=== PATIENT | male | born 1945 | race Caucasian/White ===

== ENCOUNTER 2019-03-19 21:10 | Inpatient (IN) | payer MEDICARE ==
[2019-03-19] MEDS ORDERED: Maalox 30 mL Cup PO PRN (22:55)
[2019-03-19] MEDS ORDERED: Magnesium Hydroxide (MOM) 30 mL UDC PO PRN (22:55)
[2019-03-19 23:08] VITALS: BP 127/74
[2019-03-20] MEDS: Multivitamin Tab PO SCH (08:56)
--- NOTE | 2019-03-20 18:58 | History & Physical ---
ADMIT DATE: 03/19/2019 HISTORY OF PRESENT ILLNESS: The patient is a 73-year-old male with long history of degenerative joint disease, hyperlipidemia and dementia, admitted to [facility] under Dr. Cherry's service for the treatment. The patient is a poor historian. No fever, no chills, no nausea, no vomiting. PAST MEDICAL HISTORY: Significant for hyperlipidemia, degenerative joint disease, gastroesophageal reflux, dementia. PAST SURGICAL HISTORY: No recent surgery. ALLERGIES: None. MEDICATIONS: Follow admission reconciliation. SOCIAL HISTORY: No smoking, no alcohol, no drug. FAMILY HISTORY: Noncontributory. REVIEW OF SYSTEMS: RENAL SYSTEM: No history of chronic renal disorder. CARDIOVASCULAR SYSTEM: No coronary artery disease. ENDOCRINE SYSTEM: No diabetes or thyroid problem. GASTROINTESTINAL SYSTEM: No upper or lower gastrointestinal bleed. NEUROLOGICAL SYSTEM: No seizure disorder. MUSCULOSKELETAL SYSTEM: Has degenerative joint disease. RESPIRATORY SYSTEM: No asthma. GENITOURINARY: No dysuria or hematuria. PHYSICAL EXAMINATION: GENERAL: He is awake, not coherent. VITAL SIGNS: Temperature is 98, heart rate 90, blood pressure 170/70. HEENT: Pupils reactive to light and accommodation. Sclerae clear. NECK: Supple. Negative for lymphadenopathy, JVD or bruit. CHEST: Entry of air bilaterally normal. No rhonchi or wheezing. HEART: S1, S2 normal. No murmurs, rubs or gallop rhythm. ABDOMEN: Soft, bowel sounds positive. EXTREMITIES: No edema. NEUROLOGIC: He is awake, alert, not coherent. Gait is unstable. ASSESSMENT: 1. Hyperlipidemia. 2. Degenerative joint disease. 3. Gastroesophageal reflux. 4. Dementia. 5. Psychosis. PLAN: The patient was admitted to the hospital under Dr. Cherry's service, prompted for hospitalization is psychosis. Medical problems addressed at discharge are degenerative joint disease, hyperlipidemia. The patient is medically stable for activity. Thank you, Dr. Cherry for asking me to see the patient. The patient is a full code. JOB# [id number]
[2019-03-20] MEDS: Atorvastatin Calcium 10 MG TAB PO SCH ×2 (21:20→21:30)
--- NOTE | 2019-03-20 21:25 | Psychiatric Evaluation ---
DATE OF SERVICE: 03/20/2019 JUSTIFICATION FOR HOSPITALIZATION: Agitation, hitting staff. HISTORY OF PRESENT ILLNESS: A 73-year-old male, currently in the hospital, refusing to speak with me this morning, apparently aggressive behaviors, hitting staff, refusing medications. History of alcoholism, anxiety, gastritis, brain cyst, currently here because he was really aggressive. They could not really care for him at his place of residence, which was in [place]. Chirag was walking around his care center, attempted to hit staff with a stapler, really aggressive. They could not control him, apparent history of schizophrenia, not taking his medications. PAST PSYCHIATRIC HISTORY: As noted, schizophrenia. FAMILY HISTORY: Noncontributory. SOCIAL HISTORY: Coming from a care facility in [place], unclear family support. MEDICATIONS: Noted. Drug history unclear, refusing to talk to me. MENTAL STATUS EXAMINATION: Disheveled, unkempt, refusing to talk to me. Thought processes unclear. SI unclear, HI unclear, although he was aggressive, psychosis unclear. Insight poor. Judgment poor. PROVISIONAL DIAGNOSES: Schizophrenia per documentation. MEDICAL: Please see full H and P. ESTIMATED LENGTH OF STAY: 5-7 days. ASSESSMENT: The patient is agitated and really seems to be with psychotically driven agitation, trying to hit people with a stapler, dangerous to really those around him. CONDITIONS FOR DISCHARGE: Improved mood, improved affect, better control of any agitation. PLAN: Will be to adjust his medications, stabilize further. JOB# [id number]
[2019-03-21] MEDS: Multivitamin Tab PO SCH (10:42)
[2019-03-21] MEDS: Atorvastatin Calcium 10 MG TAB PO SCH (21:00)
--- NOTE | 2019-03-21 22:32 | Internal Medicine Prog Note ---
Internal Medicine Subjective - Subjective Service Date: 03/21/19 Patient seen and examined:: without staff Patient is:: awake, non-verbal, in bed, confused Per staff patient has:: no adverse event Internal Medicine Objective - Physical Exam Vitals and I&O: Vital Signs Temp 97.8 F 03/21/19 20:27 Pulse 86 03/21/19 20:27 Resp 18 03/21/19 20:27 BP 90/55 03/21/19 20:27 Pulse Ox 96 03/21/19 20:27 Intake & Output 03/21/19 03/21/19 03/22/19 06:59 18:59 06:59 Intake Total 720 240 Balance 720 240 Intake: Oral 720 240 Other: # Voids 4 1 # Bowel Movements 0 Active Medications: Current Medications Acetaminophen (Tylenol) 650 mg PO Q4HR PRN PRN Reason: Mild Pain / Temp above 100 Stop: 05/18/19 22:54 Last Admin: 03/20/19 14:31 Dose: 650 mg Al Hydrox/Mg Hydrox/Simethicone (Maalox) 30 ml PO Q4HR PRN PRN Reason: GI DISTRESS Stop: 05/18/19 22:54 Atorvastatin Calcium (Lipitor) 20 mg PO HS JOSSELYN Stop: 05/19/19 20:59 Last Admin: 03/21/19 21:00 Dose: Not Given Chlordiazepoxide (Librium) 50 mg PO TID JOSSELYN; Protocol Stop: 05/20/19 13:59 Last Admin: 03/21/19 21:00 Dose: Not Given Folic Acid (Folate) 1 mg PO DAILY [facility] Stop: 05/19/19 08:59 Last Admin: 03/21/19 10:41 Dose: Not Given Lorazepam (Ativan) 0.5 mg PO Q4HR PRN; Protocol PRN Reason: Anxiety Stop: 04/18/19 22:54 Last Admin: 03/21/19 00:37 Dose: 0.5 mg Magnesium Hydroxide (Milk Of Magnesia) 30 ml PO HS PRN PRN Reason: Constipation Multivitamins/Vitamin C (Theragran) 1 tab PO DAILY [facility] Stop: 05/19/19 08:59 Last Admin: 03/21/19 10:42 Dose: Not Given Mupirocin (Bactroban Oint) 1 appl NS BID [facility] Stop: 03/26/19 09:01 Last Admin: 03/21/19 17:27 Dose: Not Given Risperidone (Risperdal) 0.5 mg PO BID [facility]; Protocol Stop: 05/19/19 16:59 Last Admin: 03/21/19 17:27 Dose: 0.5 mg Thiamine HCl (Vitamin B1) 100 mg PO DAILY [facility] Stop: 05/19/19 08:59 Last Admin: 03/21/19 10:42 Dose: Not Given Zolpidem Tartrate (Ambien) 5 mg PO HS PRN PRN Reason: Insomnia Stop: 05/18/19 22:54 Last Admin: 03/21/19 21:00 Dose: 5 mg General: demented HEENT: NC/AT, PERRLA, EOMI, anicteric sclerae, throat clear Neck: Supple, No JVD, No thyromegaly, +2 carotid pulse wo bruit, No LAD Lungs: CTAB Cardiovascular: RRR, Normal S1, Normal S2, without murmur Abdomen: non-tender, non-distended Neurological: no change Internal Medicine Assmt/Plan - Assessment Assessment: 1.HYPERLIPIDEMIA. 2.DJD. 3.NACHO. 4.DEMENTIA,\. 5.PSYCHOSIS - Plan Plan: CONTINUE ON CURRENT MEDICATION AND DIET.
--- NOTE | 2019-03-22 02:02 | Progress Notes ---
DATE: 03/21/2019 SUBJECTIVE: The patient in the hospital pretty lethargic. Staff concerned about over sedation given his Librium dose in combination with his age, not saying much to me today, sleeping, but arousable, but then goes back to sleep. He is pretty unkempt, staff noting some disorganized thought processes were noted, guarded, suspicious. The patient is coming from [facility]. History of alcoholism, aggressive behaviors, hitting staff that is why he is here. The patient remains impulsive, unpredictable, currently on dosing of Risperdal. Ongoing safety concerns, difficult interview. I will be slowly tapering his dosing of Librium. JOB# [id number]
[2019-03-22] MEDS: Multivitamin Tab PO SCH (09:25)
--- NOTE | 2019-03-22 11:21 | Internal Medicine Prog Note ---
Internal Medicine Subjective - Subjective Service Date: 03/22/19 Patient seen and examined:: with staff (HE IS DOING WELL) Patient is:: awake, non-verbal, in bed, confused Per staff patient has:: no adverse event Internal Medicine Objective - Physical Exam Vitals and I&O: Vital Signs Temp 97.6 F 03/22/19 06:44 Pulse 90 03/22/19 06:44 Resp 18 03/22/19 06:44 BP 105/68 03/22/19 06:44 Pulse Ox 97 03/22/19 06:44 Intake & Output 03/21/19 03/22/19 03/22/19 18:59 06:59 18:59 Intake Total 720 360 Balance 720 360 Intake: Oral 720 360 Other: # Voids 4 1 # Bowel Movements 0 Active Medications: Current Medications Acetaminophen (Tylenol) 650 mg PO Q4HR PRN PRN Reason: Mild Pain / Temp above 100 Stop: 05/18/19 22:54 Last Admin: 03/20/19 14:31 Dose: 650 mg Al Hydrox/Mg Hydrox/Simethicone (Maalox) 30 ml PO Q4HR PRN PRN Reason: GI DISTRESS Stop: 05/18/19 22:54 Atorvastatin Calcium (Lipitor) 20 mg PO HS JOSSELYN Stop: 05/19/19 20:59 Last Admin: 03/21/19 21:00 Dose: Not Given Chlordiazepoxide (Librium) 50 mg PO TID JOSSELYN; Protocol Stop: 05/20/19 13:59 Last Admin: 03/22/19 09:25 Dose: 50 mg Folic Acid (Folate) 1 mg PO DAILY J[facility]N Stop: 05/19/19 08:59 Last Admin: 03/22/19 09:26 Dose: 1 mg Lorazepam (Ativan) 0.5 mg PO Q4HR PRN; Protocol PRN Reason: Anxiety Stop: 04/18/19 22:54 Last Admin: 03/22/19 09:25 Dose: 0.5 mg Magnesium Hydroxide (Milk Of Magnesia) 30 ml PO HS PRN PRN Reason: Constipation Multivitamins/Vitamin C (Theragran) 1 tab PO DAILY [facility] Stop: 05/19/19 08:59 Last Admin: 03/22/19 09:25 Dose: 1 tab Mupirocin (Bactroban Oint) 1 appl NS BID [facility] Stop: 03/26/19 09:01 Last Admin: 03/22/19 09:26 Dose: 1 appl Risperidone (Risperdal) 0.5 mg PO BID [facility]; Protocol Stop: 05/19/19 16:59 Last Admin: 03/22/19 09:25 Dose: 0.5 mg Thiamine HCl (Vitamin B1) 100 mg PO DAILY [facility] Stop: 05/19/19 08:59 Last Admin: 03/22/19 09:26 Dose: 100 mg Zolpidem Tartrate (Ambien) 5 mg PO HS PRN PRN Reason: Insomnia Stop: 05/18/19 22:54 Last Admin: 03/21/19 21:00 Dose: 5 mg General: demented HEENT: NC/AT, PERRLA, EOMI, anicteric sclerae, throat clear Neck: Supple, No JVD, No thyromegaly, +2 carotid pulse wo bruit, No LAD Lungs: CTAB Cardiovascular: RRR, Normal S1, Normal S2, without murmur Abdomen: non-tender, non-distended Neurological: no change Internal Medicine Assmt/Plan - Assessment Assessment: 1.HYPERLIPIDEMIA. 2.DJD. 3.NACHO. 4.DEMENTIA,\. 5.PSYCHOSIS - Plan Plan: CONTINUE ON CURRENT MEDICATION AND DIET.
--- NOTE | 2019-03-22 20:53 | Progress Notes ---
DATE: 03/22/2019 Case was discussed with staff of the patient, reviewed records. This is a 73-year-old male who was admitted on 03/19/2019. He was agitated, hitting himself, aggressive, hitting staff, refusing care. History of alcoholism, anxiety, gastritis He was aggressive prior to him covering. Unable to care for self at his place of residence, which is [place]. He walk on his care center, attempting to hit staff with stapler, really aggressive, could not control him with a prior history of schizophrenia, noncompliant with his medication. The patient was hard to interview, would not answer to any questions. Continues to be unpredictable, impulsive, continues to have poor insight, disorganized thoughts, suspicious, guarded, paranoid. No side effects with the medication, no sedation, no nausea, no extrapyramidal symptoms. He is on Risperdal 0.5 mg twice a day and Librium 50 mg 3 times a day with thiamine, multivitamin, folic acid with no side effects, no sedation, no nausea, no extrapyramidal symptoms. We will continue to work with the patient in group therapy, milieu therapy, and adjust the medication as needed. JOB# [id number] LAUREN
[2019-03-22] MEDS: Atorvastatin Calcium 10 MG TAB PO SCH (21:14)
[2019-03-23] MEDS: Multivitamin Tab PO SCH (11:00)
--- NOTE | 2019-03-23 18:25 | Internal Medicine Prog Note ---
Internal Medicine Subjective - Subjective Service Date: 03/23/19 Patient seen and examined:: without staff (he is not eating) Patient is:: awake, non-verbal, in bed, confused Per staff patient has:: no adverse event Internal Medicine Objective - Physical Exam Vitals and I&O: Vital Signs Temp 96.8 F 03/23/19 14:00 Pulse 88 03/23/19 14:00 Resp 18 03/23/19 14:00 BP 99/61 03/23/19 14:00 Pulse Ox 96 03/23/19 14:00 Intake & Output 03/22/19 03/23/19 03/23/19 18:59 06:59 18:59 Intake Total 1100 120 0 Balance 1100 120 0 Intake: Oral 1100 120 0 Other: # Voids 4 3 1 # Bowel Movements 0 0 Active Medications: Current Medications Acetaminophen (Tylenol) 650 mg PO Q4HR PRN PRN Reason: Mild Pain / Temp above 100 Stop: 05/18/19 22:54 Last Admin: 03/20/19 14:31 Dose: 650 mg Al Hydrox/Mg Hydrox/Simethicone (Maalox) 30 ml PO Q4HR PRN PRN Reason: GI DISTRESS Stop: 05/18/19 22:54 Atorvastatin Calcium (Lipitor) 20 mg PO HS JOSSELYN Stop: 05/19/19 20:59 Last Admin: 03/22/19 21:14 Dose: 20 mg Chlordiazepoxide (Librium) 50 mg PO TID JOSSELYN; Protocol Stop: 05/20/19 13:59 Last Admin: 03/23/19 15:31 Dose: Not Given Folic Acid (Folate) 1 mg PO DAILY [facility] Stop: 05/19/19 08:59 Last Admin: 03/23/19 11:00 Dose: Not Given Lorazepam (Ativan) 0.5 mg PO Q4HR PRN; Protocol PRN Reason: Anxiety Stop: 04/18/19 22:54 Last Admin: 03/22/19 09:25 Dose: 0.5 mg Magnesium Hydroxide (Milk Of Magnesia) 30 ml PO HS PRN PRN Reason: Constipation Megestrol Acetate (Megace) 400 mg PO BID JOSSELYN; Protocol Stop: 05/23/19 08:59 Multivitamins/Vitamin C (Theragran) 1 tab PO DAILY [facility] Stop: 05/19/19 08:59 Last Admin: 03/23/19 11:00 Dose: Not Given Mupirocin (Bactroban Oint) 1 appl NS BID [facility] Stop: 03/26/19 09:01 Last Admin: 03/23/19 17:30 Dose: Not Given Risperidone (Risperdal) 0.5 mg PO BID [facility]; Protocol Stop: 05/19/19 16:59 Last Admin: 03/23/19 17:30 Dose: Not Given Thiamine HCl (Vitamin B1) 100 mg PO DAILY [facility] Stop: 05/19/19 08:59 Last Admin: 03/23/19 11:01 Dose: Not Given Zolpidem Tartrate (Ambien) 5 mg PO HS PRN PRN Reason: Insomnia Stop: 05/18/19 22:54 Last Admin: 03/22/19 21:15 Dose: 5 mg General: demented HEENT: NC/AT, PERRLA, EOMI, anicteric sclerae, throat clear Neck: Supple, No JVD, No thyromegaly, +2 carotid pulse wo bruit, No LAD Lungs: CTAB Cardiovascular: RRR, Normal S1, Normal S2, without murmur Abdomen: non-tender, non-distended Neurological: no change Internal Medicine Assmt/Plan - Assessment Assessment: 1.HYPERLIPIDEMIA. 2.DJD. 3.NACHO. 4.DEMENTIA,\. 5.PSYCHOSIS - Plan Plan: CONTINUE ON CURRENT MEDICATION AND DIET.MEGACE 10 CC PO BID AND CBC AND CMP IN AM.
[2019-03-23 18:51] LABS: % BASOPHILS 2.5 % (0.0-2.0); % EOSINOPHILS 1.7 % (0.0-5.0); % LYMPHOCYTES 13.8 % (20.0-50.0); BASOPHILE ABSOLUTE 0.2 Th/cumm (0-0.2); EOSINOPHILE ABSOLUTE 0.2 Th/cmm (0.1-0.4); HEMATOCRIT 51.3 % (41.0-60); HEMOGLOBIN 17.3 gm/dL (12-16); LYMPHOCYTE ABSOLUTE 1.3 Th/cmm (1.5-3.0); MEAN CELL VOLUME 102.4 fl (80-99); MEAN CORPUSCULAR HEMOGLOBIN 34.5 pg (27.0-31.0); MEAN CORPUSCULAR HGB CONC 33.7 pg (28.0-36.0); MONOCYTE ABSOLUTE 0.2 Th/cmm (0.3-1.0); NEUTROPHILE ABSOLUTE 7.7 Th/cmm (1.8-8.0); PLATELET COUNT 396 Th/cmm (150-400); RED BLOOD COUNT 5.01 Mil/cmm (3.80-5.80); RED CELL DISTRIBUTION WIDTH 14.4 % (11.5-20.0); WHITE BLOOD COUNT 9.6 Th/cmm (4.8-10.8)
[2019-03-23 19:07] LABS: ALB/GLOB RATIO 1.3 (1.0-1.8); ALBUMIN 4.1 gm/dL (4.2-5.5); ALKALINE PHOSPHATASE 76 U/L (34-104); ANION GAP 17.3 (7.0-16.0); BILIRUBIN,TOTAL 0.8 mg/dL (0.3-1.0); BUN - UREA NITROGEN 15 mg/dL (7-25); CALCIUM SERUM 9.1 mg/dL (8.6-10.3); CARBON DIOXIDE 25.5 mEq/L (21.0-31.0); CHLORIDE 105 mEq/L (98-107); CREATININE - SERUM 0.7 mg/dL (0.7-1.3); GLUCOSE 138 mg/dL (70-105); POTASSIUM SERUM 3.8 mEq/L (3.5-5.1); SGOT 45 U/L (13-39); SGPT/ALT 28 U/L (7-52); SODIUM SERUM 144 mEq/L (136-145); TOTAL PROTEIN,SERUM 7.3 gm/dL (6.0-8.3)
[2019-03-23] MEDS: Atorvastatin Calcium 10 MG TAB PO SCH (21:35)
--- NOTE | 2019-03-23 22:51 | Progress Notes ---
DATE: 03/23/2019 Case was discussed with staff of the patient, reviewed records. The patient continues to isolate himself, at times aggressive, hitting staff, continues to be unpredictable and impulsive. He has episodes of being aggressive and attempted to hit staff with a history of schizophrenia, was noncompliant with medication. Unable to participate in a meaningful conversation or make safe plan for self-care, unpredictable, impulsive. No side effects with the medication, no sedation, no nausea, no extrapyramidal symptoms. We will continue to work with the patient in group therapy, milieu therapy, and adjust the medication as needed. JOB# [id number]
[2019-03-24] MEDS: Multivitamin Tab PO SCH (08:24)
[2019-03-24 08:46] LABS: CHOLESTEROL 139 mg/dL (<200); HDL -HIGH DENSITY LIPOPROTEIN 59 mg/dL (23-92); TRIGLYCERIDES 115 mg/dL (<150)
--- NOTE | 2019-03-24 18:14 | Internal Medicine Prog Note ---
Internal Medicine Subjective - Subjective Service Date: 03/24/19 Patient seen and examined:: with staff (HE IS STILL NOT EATING WELL) Patient is:: awake, non-verbal, in bed, confused Per staff patient has:: no adverse event Internal Medicine Objective - Results Result Diagrams: 03/23/19 18:30 03/23/19 18:30 Recent Labs: Laboratory Last Values WBC 9.6 Th/cmm (4.8-10.8) 03/23/19 18:30 RBC 5.01 Mil/cmm (3.80-5.80) 03/23/19 18:30 Hgb 17.3 gm/dL (12-16) 03/23/19 18:30 Hct 51.3 % (41.0-60) 03/23/19 18:30 MCV 102.4 fl (80-99) H 03/23/19 18:30 MCH 34.5 pg (27.0-31.0) H 03/23/19 18:30 MCHC Differential 33.7 pg (28.0-36.0) 03/23/19 18:30 RDW 14.4 % (11.5-20.0) 03/23/19 18:30 Plt Count 396 Th/cmm (150-400) 03/23/19 18:30 MPV 7.4 fl 03/23/19 18:30 Neutrophils % 80.0 % (40.0-80.0) 03/23/19 18:30 Lymphocytes % 13.8 % (20.0-50.0) L 03/23/19 18:30 Monocytes % 2.0 % (2.0-10.0) 03/23/19 18:30 Eosinophils % 1.7 % (0.0-5.0) 03/23/19 18:30 Basophils % 2.5 % (0.0-2.0) H 03/23/19 18:30 Sodium 144 mEq/L (136-145) 03/23/19 18:30 Potassium 3.8 mEq/L (3.5-5.1) 03/23/19 18:30 Chloride 105 mEq/L (98-107) 03/23/19 18:30 Carbon Dioxide 25.5 mEq/L (21.0-31.0) 03/23/19 18:30 Anion Gap 17.3 (7.0-16.0) H 03/23/19 18:30 BUN 15 mg/dL (7-25) 03/23/19 18:30 Creatinine 0.7 mg/dL (0.7-1.3) 03/23/19 18:30 Est GFR ( Amer) TNP 03/23/19 18:30 Est GFR (Non-Af Amer) TNP 03/23/19 18:30 BUN/Creatinine Ratio 21.4 03/23/19 18:30 Glucose 138 mg/dL (70-105) H 03/23/19 18:30 Calcium 9.1 mg/dL (8.6-10.3) 03/23/19 18:30 Total Bilirubin 0.8 mg/dL (0.3-1.0) 03/23/19 18:30 AST 45 U/L (13-39) H 03/23/19 18:30 ALT 28 U/L (7-52) 03/23/19 18:30 Alkaline Phosphatase 76 U/L (34-104) 03/23/19 18:30 Total Protein 7.3 gm/dL (6.0-8.3) 03/23/19 18:30 Albumin 4.1 gm/dL (4.2-5.5) L 03/23/19 18:30 Globulin 3.2 gm/dL 03/23/19 18:30 Albumin/Globulin Ratio 1.3 (1.0-1.8) 03/23/19 18:30 Triglycerides 115 mg/dL (<150) 03/23/19 18:30 Cholesterol 139 mg/dL (<200) 03/23/19 18:30 LDL Cholesterol Direct 57 mg/dL (75-193) L 03/23/19 18:30 HDL Cholesterol 59 mg/dL (23-92) 03/23/19 18:30 - Physical Exam Vitals and I&O: Vital Signs Temp 99.0 F 03/24/19 06:00 Pulse 96 03/24/19 06:00 Resp 19 03/24/19 06:00 BP 107/58 03/24/19 06:00 Pulse Ox 91 03/24/19 06:00 Intake & Output 03/23/19 03/24/19 03/24/19 18:59 06:59 18:59 Intake Total 0 180 Balance 0 180 Intake: Oral 0 180 Other: # Voids 1 1 # Bowel Movements 0 0 Active Medications: Current Medications Acetaminophen (Tylenol) 650 mg PO Q4HR PRN PRN Reason: Mild Pain / Temp above 100 Stop: 05/18/19 22:54 Last Admin: 03/20/19 14:31 Dose: 650 mg Al Hydrox/Mg Hydrox/Simethicone (Maalox) 30 ml PO Q4HR PRN PRN Reason: GI DISTRESS Stop: 05/18/19 22:54 Atorvastatin Calcium (Lipitor) 20 mg PO HS [facility]OSSELYN Stop: 05/19/19 20:59 Last Admin: 03/23/19 21:35 Dose: 20 mg Chlordiazepoxide (Librium) 50 mg PO BID [facility]; Protocol Stop: 05/23/19 16:59 Last Admin: 03/24/19 16:24 Dose: 50 mg Folic Acid (Folate) 1 mg PO DAILY [facility] Stop: 05/19/19 08:59 Last Admin: 03/24/19 08:24 Dose: 1 mg Lorazepam (Ativan) 0.5 mg PO Q4HR PRN; Protocol PRN Reason: Anxiety Stop: 04/18/19 22:54 Last Admin: 03/22/19 09:25 Dose: 0.5 mg Magnesium Hydroxide (Milk Of Magnesia) 30 ml PO HS PRN PRN Reason: Constipation Megestrol Acetate (Megace) 400 mg PO BID [facility]; Protocol Stop: 05/23/19 08:59 Last Admin: 03/24/19 16:24 Dose: 400 mg Multivitamins/Vitamin C (Theragran) 1 tab PO DAILY [facility] Stop: 05/19/19 08:59 Last Admin: 03/24/19 08:24 Dose: 1 tab Mupirocin (Bactroban Oint) 1 appl NS BID [facility] Stop: 03/26/19 09:01 Last Admin: 03/24/19 16:23 Dose: 1 appl Risperidone (Risperdal) 0.5 mg PO BID [facility]; Protocol Stop: 05/19/19 16:59 Last Admin: 03/24/19 16:24 Dose: 0.5 mg Thiamine HCl (Vitamin B1) 100 mg PO DAILY [facility] Stop: 05/19/19 08:59 Last Admin: 03/24/19 08:24 Dose: 100 mg Zolpidem Tartrate (Ambien) 5 mg PO HS PRN PRN Reason: Insomnia Stop: 05/18/19 22:54 Last Admin: 03/22/19 21:15 Dose: 5 mg General: demented HEENT: NC/AT, PERRLA, EOMI, anicteric sclerae, throat clear Neck: Supple, No JVD, No thyromegaly, +2 carotid pulse wo bruit, No LAD Lungs: CTAB Cardiovascular: RRR, Normal S1, Normal S2, without murmur Abdomen: non-tender, non-distended Neurological: no change Internal Medicine Assmt/Plan - Assessment Assessment: 1.HYPERLIPIDEMIA. 2.DJD. 3.NACHO. 4.DEMENTIA,\. 5.PSYCHOSIS - Plan Plan: CONTINUE ON CURRENT MEDICATION AND DIET.MEGACE 10 CC PO BID AND CBC AND CMP IN AM. Nutritional Asmnt/Malnutr-PDOC - Dietary Evaluation Malnutrition Findings (Please click <Entered> for more info): Nutritional Asmnt/Malnutrition Start: 03/24/19 13: 14 Text: Status: Complete Freq: Protocol: Document 03/24/19 13:15 HOLLIE (Rec: 03/24/19 13:18 HOLLIE [id number]) Nutritional Asmnt/Malnutrition Patient General Information Nutritional Screening Low Risk Diagnosis Psychosis NOS Pertinent Medical Hx/Surgical Hx DJD, Hyperlipidemia, Dementia, GERD Subjective Information Pt is a 73-year-old male admitted on 03/19 d/t psychosis. Spoke with RN, Carroll, stated Pt is not eating much and at times refusing meals all together. Pt did drink 8 oz. juice, will provide Pt with Ensure Enlive to promote nutrition intake. RN stated Pt was noted to be lethargic yesterday, but seems fine today. He will monitor lethargy. Per Progress NOTE (), Pt in the hospital pretty lethargic. RN notes () state, Pt is very lethargic, weak, confused. Meal/Nutrition Record: 03/20: Pt ate 100% meals 03/21: Pt ate 50-75% meals 03/22: Pt ate 25-50% meals 03/23: PT refused all meals HT: 56 WT: 139 LB (63.18 kg) BMI: 22.55 (Normal) GI: Soft, Non-tender BM: 03/21 x1 I/O: 180/Not Noted Skin: Dryness Carter: 16 Diet Order: Regular Estimated Energy Needs: ( Geriatric, CBW) 3168-1852 kcals (25-30 kcals/ kg) 63-76g Pro (1.0-1.2 g/kg) 9728-0497 ml (25-30 ml/kg) Current Diet Order/ Nutrition Support Regular Pertinent Medications Maalox (PRN), Lipitor, Folate, MOM (PRN), Megace, Theragran, Vitamin B1 Pertinent Labs 03/23: Glucose 138, AST 45, Alb 4.1 Nutritional Hx/Data Height 1.68 m Height (Calculated Centimeters) 167.6 Current Weight (lbs) 63.049 kg Weight (Calculated Kilograms) 63.0 Weight (Calculated Grams) 90735.3 [place] Body Weight 142 LB (64.55 kg) % [place] Body Weight 98 Body Mass Index (BMI) 22.4 Weight Status Approriate GI Symptoms GI Symptoms None Last BM 03/21 x1 Skin Integrity/Comment: Skin: Dryness Carter: 16 Current %PO Poor (25-49%) Estimated Nutritional Goals BEE in Kcals: Using Current wt Calories/Kcals/Kg 25-30 Kcals Calculated 4528-9289 Protein: Using Current wt Protein g/k.0-1.2 Protein Calculated 62-76 Fluid: ml 4502-4155 ml (25-30 ml/kg) Nutritional Problem 1. Problem Problem Inadequate energy intake Etiology r/t possible poor appetite/ lethargy Signs/Symptoms: aeb noted Pt refusal to eat meals and PO intake 0-25-50% x3 days. Malnutrition Related to Morbid Obesity Malnutrition related to morbid obesity No Intervention/Recommendation Comments 1. Continue with Regular diet as ordered. 2. Add Ensure Enlive TID ( completed). Expected Outcomes/Goals Expected Outcomes/Goals 1. PO intake to meet 75% of nutritional needs. 2. Monitor PO intake, wt, nutrition related labs, and skin integrity. 3. F/U as moderate risk in 3-5 days, 03/27-03/29
[2019-03-24] MEDS: Atorvastatin Calcium 10 MG TAB PO SCH (21:58)
--- NOTE | 2019-03-24 22:58 | Progress Notes ---
DATE: 03/24/2019 SUBJECTIVE: The patient in the hospital, coming in because of aggressive behaviors, hitting staff, history of alcoholism, anxiety, [id number], the patient is irritable, sleeping, arousable, but does not want to talk to me. Per staff, he remains impulsive, unpredictable. Dr. Blount saw the patient yesterday, noted that he was confused and she could not really talk to him yesterday, perhaps he was refusing to talk to her. Per staff, he is confused, combative, aggressive hard time following directions. PLAN: We will continue to monitor. Medications were noted. Continue dosing of Risperdal. He may benefit from dose increase. I will be lowering his dosing of Librium to b.i.d. dosing. JOB# [id number]
[2019-03-25 07:09] LABS: A1C 5.4 % (4.8-5.6)
[2019-03-25] MEDS: Multivitamin Tab PO SCH (08:27)
[2019-03-25] MEDS: Atorvastatin Calcium 10 MG TAB PO SCH (20:44)
--- NOTE | 2019-03-25 22:44 | Internal Medicine Prog Note ---
Internal Medicine Subjective - Subjective Service Date: 03/25/19 Patient seen and examined:: without staff (HE IS STILL CONFUSED) Patient is:: awake, non-verbal, in bed, confused Per staff patient has:: no adverse event Internal Medicine Objective - Results Result Diagrams: 03/23/19 18:30 03/23/19 18:30 Recent Labs: Laboratory Last Values WBC 9.6 Th/cmm (4.8-10.8) 03/23/19 18:30 RBC 5.01 Mil/cmm (3.80-5.80) 03/23/19 18:30 Hgb 17.3 gm/dL (12-16) 03/23/19 18:30 Hct 51.3 % (41.0-60) 03/23/19 18:30 MCV 102.4 fl (80-99) H 03/23/19 18:30 MCH 34.5 pg (27.0-31.0) H 03/23/19 18:30 MCHC Differential 33.7 pg (28.0-36.0) 03/23/19 18:30 RDW 14.4 % (11.5-20.0) 03/23/19 18:30 Plt Count 396 Th/cmm (150-400) 03/23/19 18:30 MPV 7.4 fl 03/23/19 18:30 Neutrophils % 80.0 % (40.0-80.0) 03/23/19 18:30 Lymphocytes % 13.8 % (20.0-50.0) L 03/23/19 18:30 Monocytes % 2.0 % (2.0-10.0) 03/23/19 18:30 Eosinophils % 1.7 % (0.0-5.0) 03/23/19 18:30 Basophils % 2.5 % (0.0-2.0) H 03/23/19 18:30 Sodium 144 mEq/L (136-145) 03/23/19 18:30 Potassium 3.8 mEq/L (3.5-5.1) 03/23/19 18:30 Chloride 105 mEq/L (98-107) 03/23/19 18:30 Carbon Dioxide 25.5 mEq/L (21.0-31.0) 03/23/19 18:30 Anion Gap 17.3 (7.0-16.0) H 03/23/19 18:30 BUN 15 mg/dL (7-25) 03/23/19 18:30 Creatinine 0.7 mg/dL (0.7-1.3) 03/23/19 18:30 Est GFR ( Amer) TNP 03/23/19 18:30 Est GFR (Non-Af Amer) TNP 03/23/19 18:30 BUN/Creatinine Ratio 21.4 03/23/19 18:30 Glucose 138 mg/dL (70-105) H 03/23/19 18:30 Calcium 9.1 mg/dL (8.6-10.3) 03/23/19 18:30 Total Bilirubin 0.8 mg/dL (0.3-1.0) 03/23/19 18:30 AST 45 U/L (13-39) H 03/23/19 18:30 ALT 28 U/L (7-52) 03/23/19 18:30 Alkaline Phosphatase 76 U/L (34-104) 03/23/19 18:30 Total Protein 7.3 gm/dL (6.0-8.3) 03/23/19 18:30 Albumin 4.1 gm/dL (4.2-5.5) L 03/23/19 18:30 Globulin 3.2 gm/dL 03/23/19 18:30 Albumin/Globulin Ratio 1.3 (1.0-1.8) 03/23/19 18:30 Triglycerides 115 mg/dL (<150) 03/23/19 18:30 Cholesterol 139 mg/dL (<200) 03/23/19 18:30 LDL Cholesterol Direct 57 mg/dL (75-193) L 03/23/19 18:30 HDL Cholesterol 59 mg/dL (23-92) 03/23/19 18:30 - Physical Exam Vitals and I&O: Vital Signs Temp 0 F 03/25/19 20:21 Pulse 98 03/25/19 14:00 Resp 20 03/25/19 14:00 BP 124/74 03/25/19 14:00 Pulse Ox 98 03/25/19 14:00 Intake & Output 03/25/19 03/25/19 03/26/19 06:59 18:59 06:59 Intake Total 620 700 120 Output Total 1 Balance 619 700 120 Intake: Oral 620 700 120 Output: Urine/Stool Mix 1 Other: # Voids 1 2 3 # Bowel Movements 0 0 Active Medications: Current Medications Acetaminophen (Tylenol) 650 mg PO Q4HR PRN PRN Reason: Mild Pain / Temp above 100 Stop: 05/18/19 22:54 Last Admin: 03/20/19 14:31 Dose: 650 mg Al Hydrox/Mg Hydrox/Simethicone (Maalox) 30 ml PO Q4HR PRN PRN Reason: GI DISTRESS Stop: 05/18/19 22:54 Atorvastatin Calcium (Lipitor) 20 mg PO HS JOSSELYN Stop: 05/19/19 20:59 Last Admin: 03/25/19 20:44 Dose: 20 mg Chlordiazepoxide (Librium) 50 mg PO BID [facility]; Protocol Stop: 05/23/19 16:59 Last Admin: 03/25/19 16:29 Dose: 50 mg Folic Acid (Folate) 1 mg PO DAILY JOSSELYN Stop: 05/19/19 08:59 Last Admin: 03/25/19 08:27 Dose: 1 mg Lorazepam (Ativan) 0.5 mg PO Q4HR PRN; Protocol PRN Reason: Anxiety Stop: 04/18/19 22:54 Last Admin: 03/24/19 21:57 Dose: 0.5 mg Magnesium Hydroxide (Milk Of Magnesia) 30 ml PO HS PRN PRN Reason: Constipation Megestrol Acetate (Megace) 400 mg PO BID [facility]; Protocol Stop: 05/23/19 08:59 Last Admin: 03/25/19 16:30 Dose: 400 mg Multivitamins/Vitamin C (Theragran) 1 tab PO DAILY [facility] Stop: 05/19/19 08:59 Last Admin: 03/25/19 08:27 Dose: 1 tab Mupirocin (Bactroban Oint) 1 appl NS BID [facility] Stop: 03/26/19 09:01 Last Admin: 03/25/19 16:30 Dose: 1 appl Risperidone (Risperdal) 0.5 mg PO BID [facility]; Protocol Stop: 05/19/19 16:59 Last Admin: 03/25/19 16:30 Dose: 0.5 mg Thiamine HCl (Vitamin B1) 100 mg PO DAILY [facility] Stop: 05/19/19 08:59 Last Admin: 03/25/19 08:27 Dose: 100 mg Zolpidem Tartrate (Ambien) 5 mg PO HS PRN PRN Reason: Insomnia Stop: 05/18/19 22:54 Last Admin: 03/24/19 21:57 Dose: 5 mg General: demented HEENT: NC/AT, PERRLA, EOMI, anicteric sclerae, throat clear Neck: Supple, No JVD, No thyromegaly, +2 carotid pulse wo bruit, No LAD Lungs: CTAB Cardiovascular: RRR, Normal S1, Normal S2, without murmur Abdomen: non-tender, non-distended Neurological: no change Internal Medicine Assmt/Plan - Assessment Assessment: 1.HYPERLIPIDEMIA. 2.DJD. 3.NACHO. 4.DEMENTIA,\. 5.PSYCHOSIS - Plan Plan: CONTINUE ON CURRENT MEDICATION AND DIET. Nutritional Asmnt/Malnutr-PDOC - Dietary Evaluation Malnutrition Findings (Please click <Entered> for more info): Nutritional Asmnt/Malnutrition Start: 03/24/19 13: 14 Text: Status: Complete Freq: Protocol: Document 03/24/19 13:15 HOLLIE (Rec: 03/24/19 13:18 HOLLIE [email or web address]) Nutritional Asmnt/Malnutrition Patient General Information Nutritional Screening Low Risk Diagnosis Psychosis NOS Pertinent Medical Hx/Surgical Hx DJD, Hyperlipidemia, Dementia, GERD Subjective Information Pt is a 73-year-old male admitted on 03/19 d/t psychosis. Spoke with RN, Carroll, stated Pt is not eating much and at times refusing meals all together. Pt did drink 8 oz. juice, will provide Pt with Ensure Enlive to promote nutrition intake. RN stated Pt was noted to be lethargic yesterday, but seems fine today. He will monitor lethargy. Per Progress NOTE (), Pt in the hospital pretty lethargic. RN notes () state, Pt is very lethargic, weak, confused. Meal/Nutrition Record: 03/20: Pt ate 100% meals 03/21: Pt ate 50-75% meals 03/22: Pt ate 25-50% meals 03/23: PT refused all meals HT: 56 WT: 139 LB (63.18 kg) BMI: 22.55 (Normal) GI: Soft, Non-tender BM: 03/21 x1 I/O: 180/Not Noted Skin: Dryness Carter: 16 Diet Order: Regular Estimated Energy Needs: ( Geriatric, CBW) 8588-6640 kcals (25-30 kcals/ kg) 63-76g Pro (1.0-1.2 g/kg) 7258-1820 ml (25-30 ml/kg) Current Diet Order/ Nutrition Support Regular Pertinent Medications Maalox (PRN), Lipitor, Folate, MOM (PRN), Megace, Theragran, Vitamin B1 Pertinent Labs 03/23: Glucose 138, AST 45, Alb 4.1 Nutritional Hx/Data Height 1.68 m Height (Calculated Centimeters) 167.6 Current Weight (lbs) 63.049 kg Weight (Calculated Kilograms) 63.0 Weight (Calculated Grams) 00259.3 [place] Body Weight 142 LB (64.55 kg) % [place] Body Weight 98 Body Mass Index (BMI) 22.4 Weight Status Approriate GI Symptoms GI Symptoms None Last BM 03/21 x1 Skin Integrity/Comment: Skin: Dryness Carter: 16 Current %PO Poor (25-49%) Estimated Nutritional Goals BEE in Kcals: Using Current wt Calories/Kcals/Kg 25-30 Kcals Calculated 1987-0484 Protein: Using Current wt Protein g/k.0-1.2 Protein Calculated 62-76 Fluid: ml 9789-4340 ml (25-30 ml/kg) Nutritional Problem 1. Problem Problem Inadequate energy intake Etiology r/t possible poor appetite/ lethargy Signs/Symptoms: aeb noted Pt refusal to eat meals and PO intake 0-25-50% x3 days. Malnutrition Related to Morbid Obesity Malnutrition related to morbid obesity No Intervention/Recommendation Comments 1. Continue with Regular diet as ordered. 2. Add Ensure Enlive TID ( completed). Expected Outcomes/Goals Expected Outcomes/Goals 1. PO intake to meet 75% of nutritional needs. 2. Monitor PO intake, wt, nutrition related labs, and skin integrity. 3. F/U as moderate risk in 3-5 days, 03/27-03/29
--- NOTE | 2019-03-25 23:58 | Progress Notes ---
DATE: 03/25/2019 Case was discussed with staff of the patient, reviewed records. The patient continues to have episodes of irritability, continues to be confused, continues to need redirection. Continues to be impulsive, unpredictable. He tends to be combative, aggressive according to the staff. The patient is on Risperdal that was 0.5 mg twice a day. We will continue outpatient group therapy, milieu therapy, and adjust medication as needed. [facility]# [id number]
[2019-03-26] MEDS: Multivitamin Tab PO SCH (09:53)
--- NOTE | 2019-03-26 13:14 | Progress Notes ---
DATE: Case was discussed with staff of the patient, reviewed records. Covering for Dr. Cherry. The patient continues to be confused, needing redirection, impulsive, unpredictable, continues to isolate himself, not participating in meaningful conversation. He tolerated increase in Risperdal with no side effects, no sedation, no nausea, no extrapyramidal symptoms. We will continue outpatient group therapy, milieu therapy, and adjust medications as needed. [facility]# [id number]
--- NOTE | 2019-03-26 19:57 | Internal Medicine Prog Note ---
Internal Medicine Subjective - Subjective Service Date: 03/26/19 Patient seen and examined:: without staff (HE IS STILL CONFUSED) Patient is:: awake, non-verbal, in bed, confused Per staff patient has:: no adverse event Internal Medicine Objective - Results Result Diagrams: 03/23/19 18:30 03/23/19 18:30 Recent Labs: Laboratory Last Values WBC 9.6 Th/cmm (4.8-10.8) 03/23/19 18:30 RBC 5.01 Mil/cmm (3.80-5.80) 03/23/19 18:30 Hgb 17.3 gm/dL (12-16) 03/23/19 18:30 Hct 51.3 % (41.0-60) 03/23/19 18:30 MCV 102.4 fl (80-99) H 03/23/19 18:30 MCH 34.5 pg (27.0-31.0) H 03/23/19 18:30 MCHC Differential 33.7 pg (28.0-36.0) 03/23/19 18:30 RDW 14.4 % (11.5-20.0) 03/23/19 18:30 Plt Count 396 Th/cmm (150-400) 03/23/19 18:30 MPV 7.4 fl 03/23/19 18:30 Neutrophils % 80.0 % (40.0-80.0) 03/23/19 18:30 Lymphocytes % 13.8 % (20.0-50.0) L 03/23/19 18:30 Monocytes % 2.0 % (2.0-10.0) 03/23/19 18:30 Eosinophils % 1.7 % (0.0-5.0) 03/23/19 18:30 Basophils % 2.5 % (0.0-2.0) H 03/23/19 18:30 Sodium 144 mEq/L (136-145) 03/23/19 18:30 Potassium 3.8 mEq/L (3.5-5.1) 03/23/19 18:30 Chloride 105 mEq/L (98-107) 03/23/19 18:30 Carbon Dioxide 25.5 mEq/L (21.0-31.0) 03/23/19 18:30 Anion Gap 17.3 (7.0-16.0) H 03/23/19 18:30 BUN 15 mg/dL (7-25) 03/23/19 18:30 Creatinine 0.7 mg/dL (0.7-1.3) 03/23/19 18:30 Est GFR ( Amer) TNP 03/23/19 18:30 Est GFR (Non-Af Amer) TNP 03/23/19 18:30 BUN/Creatinine Ratio 21.4 03/23/19 18:30 Glucose 138 mg/dL (70-105) H 03/23/19 18:30 Calcium 9.1 mg/dL (8.6-10.3) 03/23/19 18:30 Total Bilirubin 0.8 mg/dL (0.3-1.0) 03/23/19 18:30 AST 45 U/L (13-39) H 03/23/19 18:30 ALT 28 U/L (7-52) 03/23/19 18:30 Alkaline Phosphatase 76 U/L (34-104) 03/23/19 18:30 Total Protein 7.3 gm/dL (6.0-8.3) 03/23/19 18:30 Albumin 4.1 gm/dL (4.2-5.5) L 03/23/19 18:30 Globulin 3.2 gm/dL 03/23/19 18:30 Albumin/Globulin Ratio 1.3 (1.0-1.8) 03/23/19 18:30 Triglycerides 115 mg/dL (<150) 03/23/19 18:30 Cholesterol 139 mg/dL (<200) 03/23/19 18:30 LDL Cholesterol Direct 57 mg/dL (75-193) L 03/23/19 18:30 HDL Cholesterol 59 mg/dL (23-92) 03/23/19 18:30 - Physical Exam Vitals and I&O: Vital Signs Temp 97.7 F 03/26/19 14:07 Pulse 88 03/26/19 14:07 Resp 18 03/26/19 14:07 BP 101/59 03/26/19 14:07 Pulse Ox 95 03/26/19 14:07 Intake & Output 03/26/19 03/26/19 03/27/19 06:59 18:59 06:59 Intake Total 120 Balance 120 Intake: Oral 120 Other: # Voids 3 3 # Bowel Movements 0 0 Active Medications: Current Medications Acetaminophen (Tylenol) 650 mg PO Q4HR PRN PRN Reason: Mild Pain / Temp above 100 Stop: 05/18/19 22:54 Last Admin: 03/20/19 14:31 Dose: 650 mg Al Hydrox/Mg Hydrox/Simethicone (Maalox) 30 ml PO Q4HR PRN PRN Reason: GI DISTRESS Stop: 05/18/19 22:54 Atorvastatin Calcium (Lipitor) 20 mg PO HS JOSSELYN Stop: 05/19/19 20:59 Last Admin: 03/25/19 20:44 Dose: Not Given Chlordiazepoxide (Librium) 50 mg PO BID [facility]; Protocol Stop: 05/23/19 16:59 Last Admin: 03/26/19 17:51 Dose: Not Given Folic Acid (Folate) 1 mg PO DAILY [facility] Stop: 05/19/19 08:59 Last Admin: 03/26/19 09:53 Dose: 1 mg Lorazepam (Ativan) 0.5 mg PO Q4HR PRN; Protocol PRN Reason: Anxiety Stop: 04/18/19 22:54 Last Admin: 03/24/19 21:57 Dose: 0.5 mg Magnesium Hydroxide (Milk Of Magnesia) 30 ml PO HS PRN PRN Reason: Constipation Megestrol Acetate (Megace) 400 mg PO BID [facility]; Protocol Stop: 05/23/19 08:59 Last Admin: 03/26/19 17:47 Dose: 400 mg Multivitamins/Vitamin C (Theragran) 1 tab PO DAILY JOSSELYN Stop: 05/19/19 08:59 Last Admin: 03/26/19 09:53 Dose: 1 tab Mupirocin (Bactroban Oint) 4 appl TP BID [facility] Stop: 03/28/19 17:29 Last Admin: 03/26/19 17:24 Dose: 4 appl Risperidone (Risperdal) 0.5 mg PO BID [facility]; Protocol Stop: 05/19/19 16:59 Last Admin: 03/26/19 17:47 Dose: 0.5 mg Thiamine HCl (Vitamin B1) 100 mg PO DAILY [facility] Stop: 05/19/19 08:59 Last Admin: 03/26/19 09:53 Dose: 100 mg Zolpidem Tartrate (Ambien) 5 mg PO HS PRN PRN Reason: Insomnia Stop: 05/18/19 22:54 Last Admin: 03/24/19 21:57 Dose: 5 mg General: demented HEENT: NC/AT, PERRLA, EOMI, anicteric sclerae, throat clear Neck: Supple, No JVD, No thyromegaly, +2 carotid pulse wo bruit, No LAD Lungs: CTAB Cardiovascular: RRR, Normal S1, Normal S2, without murmur Abdomen: non-tender, non-distended Neurological: no change Internal Medicine Assmt/Plan - Assessment Assessment: 1.HYPERLIPIDEMIA. 2.DJD. 3.NACHO. 4.DEMENTIA,\. 5.PSYCHOSIS - Plan Plan: CONTINUE ON CURRENT MEDICATION AND DIET. Nutritional Asmnt/Malnutr-PDOC - Dietary Evaluation Malnutrition Findings (Please click <Entered> for more info): Nutritional Asmnt/Malnutrition Start: 03/24/19 13: 14 Text: Status: Complete Freq: Protocol: Document 03/24/19 13:15 HOLLIE (Rec: 03/24/19 13:18 HOLLIE [email or web address]) Nutritional Asmnt/Malnutrition Patient General Information Nutritional Screening Low Risk Diagnosis Psychosis NOS Pertinent Medical Hx/Surgical Hx DJD, Hyperlipidemia, Dementia, GERD Subjective Information Pt is a 73-year-old male admitted on 03/19 d/t psychosis. Spoke with RN, Carroll, stated Pt is not eating much and at times refusing meals all together. Pt did drink 8 oz. juice, will provide Pt with Ensure Enlive to promote nutrition intake. RN stated Pt was noted to be lethargic yesterday, but seems fine today. He will monitor lethargy. Per Progress NOTE (), Pt in the hospital pretty lethargic. RN notes () state, Pt is very lethargic, weak, confused. Meal/Nutrition Record: 03/20: Pt ate 100% meals 03/21: Pt ate 50-75% meals 03/22: Pt ate 25-50% meals 03/23: PT refused all meals HT: 56 WT: 139 LB (63.18 kg) BMI: 22.55 (Normal) GI: Soft, Non-tender BM: 03/21 x1 I/O: 180/Not Noted Skin: Dryness Carter: 16 Diet Order: Regular Estimated Energy Needs: ( Geriatric, CBW) 2085-4819 kcals (25-30 kcals/ kg) 63-76g Pro (1.0-1.2 g/kg) 2592-4408 ml (25-30 ml/kg) Current Diet Order/ Nutrition Support Regular Pertinent Medications Maalox (PRN), Lipitor, Folate, MOM (PRN), Megace, Theragran, Vitamin B1 Pertinent Labs 03/23: Glucose 138, AST 45, Alb 4.1 Nutritional Hx/Data Height 1.68 m Height (Calculated Centimeters) 167.6 Current Weight (lbs) 63.049 kg Weight (Calculated Kilograms) 63.0 Weight (Calculated Grams) 74488.3 [place] Body Weight 142 LB (64.55 kg) % [place] Body Weight 98 Body Mass Index (BMI) 22.4 Weight Status Approriate GI Symptoms GI Symptoms None Last BM 03/21 x1 Skin Integrity/Comment: Skin: Dryness Carter: 16 Current %PO Poor (25-49%) Estimated Nutritional Goals BEE in Kcals: Using Current wt Calories/Kcals/Kg 25-30 Kcals Calculated 7347-9392 Protein: Using Current wt Protein g/k.0-1.2 Protein Calculated 62-76 Fluid: ml 5490-3774 ml (25-30 ml/kg) Nutritional Problem 1. Problem Problem Inadequate energy intake Etiology r/t possible poor appetite/ lethargy Signs/Symptoms: aeb noted Pt refusal to eat meals and PO intake 0-25-50% x3 days. Malnutrition Related to Morbid Obesity Malnutrition related to morbid obesity No Intervention/Recommendation Comments 1. Continue with Regular diet as ordered. 2. Add Ensure Enlive TID ( completed). Expected Outcomes/Goals Expected Outcomes/Goals 1. PO intake to meet 75% of nutritional needs. 2. Monitor PO intake, wt, nutrition related labs, and skin integrity. 3. F/U as moderate risk in 3-5 days, 03/27-03/29
[2019-03-26] MEDS: Atorvastatin Calcium 10 MG TAB PO SCH (20:53)
[2019-03-27] MEDS: Multivitamin Tab PO SCH (09:31)
--- NOTE | 2019-03-27 15:24 | Progress Notes ---
DATE: 03/27/2019 SUBJECTIVE: Case was discussed with staff of the patient, reviewed records. The patient continues to be unpredictable, impulsive, isolating himself,. He tolerated the increase in Risperdal with no side effects, no sedation, no nausea, no extrapyramidal symptoms. Sleeping better, eating better, and we will continue outpatient group therapy, milieu therapy, and adjust medication as needed. [facility]# [id number] [facility]
--- NOTE | 2019-03-27 17:47 | Internal Medicine Prog Note ---
Internal Medicine Subjective - Subjective Service Date: 03/27/19 Patient seen and examined:: without staff (he is still has poor appetite) Patient is:: awake, non-verbal, in bed, confused Per staff patient has:: no adverse event Internal Medicine Objective - Results Result Diagrams: 03/23/19 18:30 03/23/19 18:30 Recent Labs: Laboratory Last Values WBC 9.6 Th/cmm (4.8-10.8) 03/23/19 18:30 RBC 5.01 Mil/cmm (3.80-5.80) 03/23/19 18:30 Hgb 17.3 gm/dL (12-16) 03/23/19 18:30 Hct 51.3 % (41.0-60) 03/23/19 18:30 MCV 102.4 fl (80-99) H 03/23/19 18:30 MCH 34.5 pg (27.0-31.0) H 03/23/19 18:30 MCHC Differential 33.7 pg (28.0-36.0) 03/23/19 18:30 RDW 14.4 % (11.5-20.0) 03/23/19 18:30 Plt Count 396 Th/cmm (150-400) 03/23/19 18:30 MPV 7.4 fl 03/23/19 18:30 Neutrophils % 80.0 % (40.0-80.0) 03/23/19 18:30 Lymphocytes % 13.8 % (20.0-50.0) L 03/23/19 18:30 Monocytes % 2.0 % (2.0-10.0) 03/23/19 18:30 Eosinophils % 1.7 % (0.0-5.0) 03/23/19 18:30 Basophils % 2.5 % (0.0-2.0) H 03/23/19 18:30 Sodium 144 mEq/L (136-145) 03/23/19 18:30 Potassium 3.8 mEq/L (3.5-5.1) 03/23/19 18:30 Chloride 105 mEq/L (98-107) 03/23/19 18:30 Carbon Dioxide 25.5 mEq/L (21.0-31.0) 03/23/19 18:30 Anion Gap 17.3 (7.0-16.0) H 03/23/19 18:30 BUN 15 mg/dL (7-25) 03/23/19 18:30 Creatinine 0.7 mg/dL (0.7-1.3) 03/23/19 18:30 Est GFR ( Amer) TNP 03/23/19 18:30 Est GFR (Non-Af Amer) TNP 03/23/19 18:30 BUN/Creatinine Ratio 21.4 03/23/19 18:30 Glucose 138 mg/dL (70-105) H 03/23/19 18:30 Calcium 9.1 mg/dL (8.6-10.3) 03/23/19 18:30 Total Bilirubin 0.8 mg/dL (0.3-1.0) 03/23/19 18:30 AST 45 U/L (13-39) H 03/23/19 18:30 ALT 28 U/L (7-52) 03/23/19 18:30 Alkaline Phosphatase 76 U/L (34-104) 03/23/19 18:30 Total Protein 7.3 gm/dL (6.0-8.3) 03/23/19 18:30 Albumin 4.1 gm/dL (4.2-5.5) L 03/23/19 18:30 Globulin 3.2 gm/dL 03/23/19 18:30 Albumin/Globulin Ratio 1.3 (1.0-1.8) 03/23/19 18:30 Triglycerides 115 mg/dL (<150) 03/23/19 18:30 Cholesterol 139 mg/dL (<200) 03/23/19 18:30 LDL Cholesterol Direct 57 mg/dL (75-193) L 03/23/19 18:30 HDL Cholesterol 59 mg/dL (23-92) 03/23/19 18:30 - Physical Exam Vitals and I&O: Vital Signs Temp 98.7 F 03/27/19 15:59 Pulse 84 03/27/19 15:59 Resp 18 03/27/19 15:59 BP 112/69 03/27/19 15:59 Pulse Ox 97 03/27/19 15:59 Intake & Output 03/26/19 03/27/19 03/27/19 18:59 06:59 18:59 Other: # Voids 3 3 # Bowel Movements 0 Active Medications: Current Medications Acetaminophen (Tylenol) 650 mg PO Q4HR PRN PRN Reason: Mild Pain / Temp above 100 Stop: 05/18/19 22:54 Last Admin: 03/20/19 14:31 Dose: 650 mg Al Hydrox/Mg Hydrox/Simethicone (Maalox) 30 ml PO Q4HR PRN PRN Reason: GI DISTRESS Stop: 05/18/19 22:54 Atorvastatin Calcium (Lipitor) 20 mg PO HS JOSSELYN Stop: 05/19/19 20:59 Last Admin: 03/26/19 20:53 Dose: 20 mg Chlordiazepoxide (Librium) 50 mg PO BID [facility]; Protocol Stop: 05/23/19 16:59 Last Admin: 03/27/19 17:19 Dose: 50 mg Folic Acid (Folate) 1 mg PO DAILY [facility] Stop: 05/19/19 08:59 Last Admin: 03/27/19 09:31 Dose: 1 mg Lorazepam (Ativan) 0.5 mg PO Q4HR PRN; Protocol PRN Reason: Anxiety Stop: 04/18/19 22:54 Last Admin: 03/24/19 21:57 Dose: 0.5 mg Magnesium Hydroxide (Milk Of Magnesia) 30 ml PO HS PRN PRN Reason: Constipation Megestrol Acetate (Megace) 400 mg PO BID [facility]; Protocol Stop: 05/23/19 08:59 Last Admin: 03/27/19 17:19 Dose: 400 mg Multivitamins/Vitamin C (Theragran) 1 tab PO DAILY [facility]N Stop: 05/19/19 08:59 Last Admin: 03/27/19 09:31 Dose: 1 tab Mupirocin (Bactroban Oint) 4 appl TP BID [facility] Stop: 03/28/19 17:29 Last Admin: 03/27/19 17:20 Dose: 4 appl Risperidone (Risperdal) 0.5 mg PO BID [facility]; Protocol Stop: 05/19/19 16:59 Last Admin: 03/27/19 17:19 Dose: 0.5 mg Thiamine HCl (Vitamin B1) 100 mg PO DAILY [facility] Stop: 05/19/19 08:59 Last Admin: 03/27/19 09:31 Dose: 100 mg Zolpidem Tartrate (Ambien) 5 mg PO HS PRN PRN Reason: Insomnia Stop: 05/18/19 22:54 Last Admin: 03/24/19 21:57 Dose: 5 mg General: demented HEENT: NC/AT, PERRLA, EOMI, anicteric sclerae, throat clear Neck: Supple, No JVD, No thyromegaly, +2 carotid pulse wo bruit, No LAD Lungs: CTAB Cardiovascular: RRR, Normal S1, Normal S2, without murmur Abdomen: non-tender, non-distended Neurological: no change Internal Medicine Assmt/Plan - Assessment Assessment: 1.HYPERLIPIDEMIA. 2.DJD. 3.NACHO. 4.DEMENTIA,\. 5.PSYCHOSIS - Plan Plan: CONTINUE ON CURRENT MEDICATION AND DIET. Nutritional Asmnt/Malnutr-PDOC - Dietary Evaluation Malnutrition Findings (Please click <Entered> for more info): Nutritional Asmnt/Malnutrition Start: 03/24/19 13: 14 Text: Status: Complete Freq: Protocol: Document 03/24/19 13:15 HOLLIE (Rec: 03/24/19 13:18 HOLLIE [id number]) Nutritional Asmnt/Malnutrition Patient General Information Nutritional Screening Low Risk Diagnosis Psychosis NOS Pertinent Medical Hx/Surgical Hx DJD, Hyperlipidemia, Dementia, GERD Subjective Information Pt is a 73-year-old male admitted on 03/19 d/t psychosis. Spoke with RN, Carroll, stated Pt is not eating much and at times refusing meals all together. Pt did drink 8 oz. juice, will provide Pt with Ensure Enlive to promote nutrition intake. RN stated Pt was noted to be lethargic yesterday, but seems fine today. He will monitor lethargy. Per Progress NOTE (), Pt in the hospital pretty lethargic. RN notes () state, Pt is very lethargic, weak, confused. Meal/Nutrition Record: 03/20: Pt ate 100% meals 03/21: Pt ate 50-75% meals 03/22: Pt ate 25-50% meals 03/23: PT refused all meals HT: 56 WT: 139 LB (63.18 kg) BMI: 22.55 (Normal) GI: Soft, Non-tender BM: 03/21 x1 I/O: 180/Not Noted Skin: Dryness Carter: 16 Diet Order: Regular Estimated Energy Needs: ( Geriatric, CBW) 0547-5609 kcals (25-30 kcals/ kg) 63-76g Pro (1.0-1.2 g/kg) 5631-3511 ml (25-30 ml/kg) Current Diet Order/ Nutrition Support Regular Pertinent Medications Maalox (PRN), Lipitor, Folate, MOM (PRN), Megace, Theragran, Vitamin B1 Pertinent Labs 03/23: Glucose 138, AST 45, Alb 4.1 Nutritional Hx/Data Height 1.68 m Height (Calculated Centimeters) 167.6 Current Weight (lbs) 63.049 kg Weight (Calculated Kilograms) 63.0 Weight (Calculated Grams) 08136.3 [place] Body Weight 142 LB (64.55 kg) % [place] Body Weight 98 Body Mass Index (BMI) 22.4 Weight Status Approriate GI Symptoms GI Symptoms None Last BM 03/21 x1 Skin Integrity/Comment: Skin: Dryness Carter: 16 Current %PO Poor (25-49%) Estimated Nutritional Goals BEE in Kcals: Using Current wt Calories/Kcals/Kg 25-30 Kcals Calculated 4013-2726 Protein: Using Current wt Protein g/k.0-1.2 Protein Calculated 62-76 Fluid: ml 1370-4722 ml (25-30 ml/kg) Nutritional Problem 1. Problem Problem Inadequate energy intake Etiology r/t possible poor appetite/ lethargy Signs/Symptoms: aeb noted Pt refusal to eat meals and PO intake 0-25-50% x3 days. Malnutrition Related to Morbid Obesity Malnutrition related to morbid obesity No Intervention/Recommendation Comments 1. Continue with Regular diet as ordered. 2. Add Ensure Enlive TID ( completed). Expected Outcomes/Goals Expected Outcomes/Goals 1. PO intake to meet 75% of nutritional needs. 2. Monitor PO intake, wt, nutrition related labs, and skin integrity. 3. F/U as moderate risk in 3-5 days, 03/27-03/29
[2019-03-27] MEDS: Atorvastatin Calcium 10 MG TAB PO SCH ×2 (21:16)
[2019-03-28] MEDS: Multivitamin Tab PO SCH (08:33)
--- NOTE | 2019-03-28 17:20 | Internal Medicine Prog Note ---
Internal Medicine Subjective - Subjective Service Date: 03/28/19 Patient seen and examined:: without staff (HE IS DOING BETTER) Patient is:: awake, non-verbal, in bed, confused Per staff patient has:: no adverse event Internal Medicine Objective - Results Result Diagrams: 03/23/19 18:30 03/23/19 18:30 Recent Labs: Laboratory Last Values WBC 9.6 Th/cmm (4.8-10.8) 03/23/19 18:30 RBC 5.01 Mil/cmm (3.80-5.80) 03/23/19 18:30 Hgb 17.3 gm/dL (12-16) 03/23/19 18:30 Hct 51.3 % (41.0-60) 03/23/19 18:30 MCV 102.4 fl (80-99) H 03/23/19 18:30 MCH 34.5 pg (27.0-31.0) H 03/23/19 18:30 MCHC Differential 33.7 pg (28.0-36.0) 03/23/19 18:30 RDW 14.4 % (11.5-20.0) 03/23/19 18:30 Plt Count 396 Th/cmm (150-400) 03/23/19 18:30 MPV 7.4 fl 03/23/19 18:30 Neutrophils % 80.0 % (40.0-80.0) 03/23/19 18:30 Lymphocytes % 13.8 % (20.0-50.0) L 03/23/19 18:30 Monocytes % 2.0 % (2.0-10.0) 03/23/19 18:30 Eosinophils % 1.7 % (0.0-5.0) 03/23/19 18:30 Basophils % 2.5 % (0.0-2.0) H 03/23/19 18:30 Sodium 144 mEq/L (136-145) 03/23/19 18:30 Potassium 3.8 mEq/L (3.5-5.1) 03/23/19 18:30 Chloride 105 mEq/L (98-107) 03/23/19 18:30 Carbon Dioxide 25.5 mEq/L (21.0-31.0) 03/23/19 18:30 Anion Gap 17.3 (7.0-16.0) H 03/23/19 18:30 BUN 15 mg/dL (7-25) 03/23/19 18:30 Creatinine 0.7 mg/dL (0.7-1.3) 03/23/19 18:30 Est GFR ( Amer) TNP 03/23/19 18:30 Est GFR (Non-Af Amer) TNP 03/23/19 18:30 BUN/Creatinine Ratio 21.4 03/23/19 18:30 Glucose 138 mg/dL (70-105) H 03/23/19 18:30 Calcium 9.1 mg/dL (8.6-10.3) 03/23/19 18:30 Total Bilirubin 0.8 mg/dL (0.3-1.0) 03/23/19 18:30 AST 45 U/L (13-39) H 03/23/19 18:30 ALT 28 U/L (7-52) 03/23/19 18:30 Alkaline Phosphatase 76 U/L (34-104) 03/23/19 18:30 Total Protein 7.3 gm/dL (6.0-8.3) 03/23/19 18:30 Albumin 4.1 gm/dL (4.2-5.5) L 03/23/19 18:30 Globulin 3.2 gm/dL 03/23/19 18:30 Albumin/Globulin Ratio 1.3 (1.0-1.8) 03/23/19 18:30 Triglycerides 115 mg/dL (<150) 03/23/19 18:30 Cholesterol 139 mg/dL (<200) 03/23/19 18:30 LDL Cholesterol Direct 57 mg/dL (75-193) L 03/23/19 18:30 HDL Cholesterol 59 mg/dL (23-92) 03/23/19 18:30 - Physical Exam Vitals and I&O: Vital Signs Temp 97.5 F 03/28/19 14:00 Pulse 93 03/28/19 14:00 Resp 18 03/28/19 14:00 BP 121/63 03/28/19 14:00 Pulse Ox 98 03/28/19 14:00 Intake & Output 03/27/19 03/28/19 03/28/19 18:59 06:59 18:59 Intake Total 680 120 Balance 680 120 Intake: Oral 680 120 Other: # Voids 2 3 # Bowel Movements 0 Active Medications: Current Medications Acetaminophen (Tylenol) 650 mg PO Q4HR PRN PRN Reason: Mild Pain / Temp above 100 Stop: 05/18/19 22:54 Last Admin: 03/20/19 14:31 Dose: 650 mg Al Hydrox/Mg Hydrox/Simethicone (Maalox) 30 ml PO Q4HR PRN PRN Reason: GI DISTRESS Stop: 05/18/19 22:54 Atorvastatin Calcium (Lipitor) 20 mg PO HS JOSSELYN Stop: 05/19/19 20:59 Last Admin: 03/27/19 21:16 Dose: Not Given Chlordiazepoxide (Librium) 50 mg PO BID [facility]; Protocol Stop: 05/23/19 16:59 Last Admin: 03/28/19 16:40 Dose: 50 mg Folic Acid (Folate) 1 mg PO DAILY JOSSELYN Stop: 05/19/19 08:59 Last Admin: 03/28/19 08:33 Dose: 1 mg Lorazepam (Ativan) 0.5 mg PO Q4HR PRN; Protocol PRN Reason: Anxiety Stop: 04/18/19 22:54 Last Admin: 03/25/19 03:15 Dose: 0.5 mg Magnesium Hydroxide (Milk Of Magnesia) 30 ml PO HS PRN PRN Reason: Constipation Megestrol Acetate (Megace) 400 mg PO BID [facility]; Protocol Stop: 05/23/19 08:59 Last Admin: 03/28/19 16:41 Dose: 400 mg Multivitamins/Vitamin C (Theragran) 1 tab PO DAILY JOSSELYN Stop: 05/19/19 08:59 Last Admin: 03/28/19 08:33 Dose: 1 tab Mupirocin (Bactroban Oint) 4 appl TP BID [facility] Stop: 03/28/19 17:29 Last Admin: 03/28/19 16:42 Dose: 4 appl Risperidone (Risperdal) 0.75 mg PO BID [facility]; Protocol Stop: 05/27/19 16:59 Last Admin: 03/28/19 16:41 Dose: 0.75 mg Thiamine HCl (Vitamin B1) 100 mg PO DAILY JOSSELYN Stop: 05/19/19 08:59 Last Admin: 03/28/19 08:33 Dose: 100 mg Zolpidem Tartrate (Ambien) 5 mg PO HS PRN PRN Reason: Insomnia Stop: 05/18/19 22:54 Last Admin: 03/25/19 02:35 Dose: 5 mg General: demented HEENT: NC/AT, PERRLA, EOMI, anicteric sclerae, throat clear Neck: Supple, No JVD, No thyromegaly, +2 carotid pulse wo bruit, No LAD Lungs: CTAB Cardiovascular: RRR, Normal S1, Normal S2, without murmur Abdomen: non-tender, non-distended Neurological: no change Internal Medicine Assmt/Plan - Assessment Assessment: 1.HYPERLIPIDEMIA. 2.DJD. 3.NACHO. 4.DEMENTIA,\. 5.PSYCHOSIS - Plan Plan: CONTINUE ON CURRENT MEDICATION AND DIET. Nutritional Asmnt/Malnutr-PDOC - Dietary Evaluation Malnutrition Findings (Please click <Entered> for more info): Nutritional Asmnt/Malnutrition Start: 03/24/19 13: 14 Text: Status: Complete Freq: Protocol: Document 03/24/19 13:15 HOLLIE (Rec: 03/24/19 13:18 HOLLIE [email or web address]) Nutritional Asmnt/Malnutrition Patient General Information Nutritional Screening Low Risk Diagnosis Psychosis NOS Pertinent Medical Hx/Surgical Hx DJD, Hyperlipidemia, Dementia, GERD Subjective Information Pt is a 73-year-old male admitted on 03/19 d/t psychosis. Spoke with RN, Carroll, stated Pt is not eating much and at times refusing meals all together. Pt did drink 8 oz. juice, will provide Pt with Ensure Enlive to promote nutrition intake. RN stated Pt was noted to be lethargic yesterday, but seems fine today. He will monitor lethargy. Per Progress NOTE (), Pt in the hospital pretty lethargic. RN notes () state, Pt is very lethargic, weak, confused. Meal/Nutrition Record: 03/20: Pt ate 100% meals 03/21: Pt ate 50-75% meals 03/22: Pt ate 25-50% meals 03/23: PT refused all meals HT: 56 WT: 139 LB (63.18 kg) BMI: 22.55 (Normal) GI: Soft, Non-tender BM: 03/21 x1 I/O: 180/Not Noted Skin: Dryness Carter: 16 Diet Order: Regular Estimated Energy Needs: ( Geriatric, CBW) 2052-9865 kcals (25-30 kcals/ kg) 63-76g Pro (1.0-1.2 g/kg) 7429-8742 ml (25-30 ml/kg) Current Diet Order/ Nutrition Support Regular Pertinent Medications Maalox (PRN), Lipitor, Folate, MOM (PRN), Megace, Theragran, Vitamin B1 Pertinent Labs 03/23: Glucose 138, AST 45, Alb 4.1 Nutritional Hx/Data Height 1.68 m Height (Calculated Centimeters) 167.6 Current Weight (lbs) 63.049 kg Weight (Calculated Kilograms) 63.0 Weight (Calculated Grams) 85654.3 [place] Body Weight 142 LB (64.55 kg) % [place] Body Weight 98 Body Mass Index (BMI) 22.4 Weight Status Approriate GI Symptoms GI Symptoms None Last BM 03/21 x1 Skin Integrity/Comment: Skin: Dryness Carter: 16 Current %PO Poor (25-49%) Estimated Nutritional Goals BEE in Kcals: Using Current wt Calories/Kcals/Kg 25-30 Kcals Calculated 6363-8690 Protein: Using Current wt Protein g/k.0-1.2 Protein Calculated 62-76 Fluid: ml 7031-8990 ml (25-30 ml/kg) Nutritional Problem 1. Problem Problem Inadequate energy intake Etiology r/t possible poor appetite/ lethargy Signs/Symptoms: aeb noted Pt refusal to eat meals and PO intake 0-25-50% x3 days. Malnutrition Related to Morbid Obesity Malnutrition related to morbid obesity No Intervention/Recommendation Comments 1. Continue with Regular diet as ordered. 2. Add Ensure Enlive TID ( completed). Expected Outcomes/Goals Expected Outcomes/Goals 1. PO intake to meet 75% of nutritional needs. 2. Monitor PO intake, wt, nutrition related labs, and skin integrity. 3. F/U as moderate risk in 3-5 days, 03/27-03/29
[2019-03-28] MEDS: Atorvastatin Calcium 10 MG TAB PO SCH (20:58)
--- NOTE | 2019-03-28 22:54 | Progress Notes ---
DATE: 03/28/2019 Case was discussed with staff of the patient, reviewed records. The patient was in the dining room. He was suspicious . He said he can tell me because this is stigma continues to be confused, unpredictable, impulsive, and needing redirection. He is on Risperdal 0.5 mg twice a day with no side effects. I will be increasing the Risperdal to 0.7 mg twice a day and also working on discharge plan and he continues to be unpredictable, impulsive, easily agitated, very poor insight, and psychotic. We will continue outpatient group therapy, milieu therapy, and adjust medication as needed. JOB# [id number]
[2019-03-29] MEDS: Multivitamin Tab PO SCH (11:03)
--- NOTE | 2019-03-29 21:03 | General Progress Note ---
Subjective - Review of Systems Service Date: 03/29/19 Subjective: resting comfortaby no distress Objective - Results Result Diagrams: 03/23/19 18:30 03/23/19 18:30 Recent Labs: Laboratory Last Values WBC 9.6 Th/cmm (4.8-10.8) 03/23/19 18:30 RBC 5.01 Mil/cmm (3.80-5.80) 03/23/19 18:30 Hgb 17.3 gm/dL (12-16) 03/23/19 18:30 Hct 51.3 % (41.0-60) 03/23/19 18:30 MCV 102.4 fl (80-99) H 03/23/19 18:30 MCH 34.5 pg (27.0-31.0) H 03/23/19 18:30 MCHC Differential 33.7 pg (28.0-36.0) 03/23/19 18:30 RDW 14.4 % (11.5-20.0) 03/23/19 18:30 Plt Count 396 Th/cmm (150-400) 03/23/19 18:30 MPV 7.4 fl 03/23/19 18:30 Neutrophils % 80.0 % (40.0-80.0) 03/23/19 18:30 Lymphocytes % 13.8 % (20.0-50.0) L 03/23/19 18:30 Monocytes % 2.0 % (2.0-10.0) 03/23/19 18:30 Eosinophils % 1.7 % (0.0-5.0) 03/23/19 18:30 Basophils % 2.5 % (0.0-2.0) H 03/23/19 18:30 Sodium 144 mEq/L (136-145) 03/23/19 18:30 Potassium 3.8 mEq/L (3.5-5.1) 03/23/19 18:30 Chloride 105 mEq/L (98-107) 03/23/19 18:30 Carbon Dioxide 25.5 mEq/L (21.0-31.0) 03/23/19 18:30 Anion Gap 17.3 (7.0-16.0) H 03/23/19 18:30 BUN 15 mg/dL (7-25) 03/23/19 18:30 Creatinine 0.7 mg/dL (0.7-1.3) 03/23/19 18:30 Est GFR ( Amer) TNP 03/23/19 18:30 Est GFR (Non-Af Amer) TNP 03/23/19 18:30 BUN/Creatinine Ratio 21.4 03/23/19 18:30 Glucose 138 mg/dL (70-105) H 03/23/19 18:30 Calcium 9.1 mg/dL (8.6-10.3) 03/23/19 18:30 Total Bilirubin 0.8 mg/dL (0.3-1.0) 03/23/19 18:30 AST 45 U/L (13-39) H 03/23/19 18:30 ALT 28 U/L (7-52) 03/23/19 18:30 Alkaline Phosphatase 76 U/L (34-104) 03/23/19 18:30 Total Protein 7.3 gm/dL (6.0-8.3) 03/23/19 18:30 Albumin 4.1 gm/dL (4.2-5.5) L 03/23/19 18:30 Globulin 3.2 gm/dL 03/23/19 18:30 Albumin/Globulin Ratio 1.3 (1.0-1.8) 03/23/19 18:30 Triglycerides 115 mg/dL (<150) 03/23/19 18:30 Cholesterol 139 mg/dL (<200) 03/23/19 18:30 LDL Cholesterol Direct 57 mg/dL (75-193) L 03/23/19 18:30 HDL Cholesterol 59 mg/dL (23-92) 03/23/19 18:30 - Physical Exam Vitals and I&O: Vital Signs Temp 98.6 F 03/29/19 20:21 Pulse 94 03/29/19 20:21 Resp 18 03/29/19 20:21 BP 103/66 03/29/19 20:21 Pulse Ox 96 03/29/19 20:21 Intake & Output 03/29/19 03/29/19 03/30/19 06:59 18:59 06:59 Intake Total 240 600 120 Output Total 1 Balance 240 600 119 Intake: Oral 240 360 120 Other 240 Output: Urine/Stool Mix 1 Other: # Voids 2 3 1 # Bowel Movements 0 0 Active Medications: Current Medications Acetaminophen (Tylenol) 650 mg PO Q4HR PRN PRN Reason: Mild Pain / Temp above 100 Stop: 05/18/19 22:54 Last Admin: 03/20/19 14:31 Dose: 650 mg Al Hydrox/Mg Hydrox/Simethicone (Maalox) 30 ml PO Q4HR PRN PRN Reason: GI DISTRESS Stop: 05/18/19 22:54 Atorvastatin Calcium (Lipitor) 20 mg PO HS JOSSELYN Stop: 05/19/19 20:59 Last Admin: 03/28/19 20:58 Dose: 20 mg Chlordiazepoxide (Librium) 50 mg PO BID [facility]; Protocol Stop: 05/23/19 16:59 Last Admin: 03/29/19 09:00 Dose: Not Given Folic Acid (Folate) 1 mg PO DAILY [facility] Stop: 05/19/19 08:59 Last Admin: 03/29/19 09:00 Dose: Not Given Lorazepam (Ativan) 0.5 mg PO Q4HR PRN; Protocol PRN Reason: Anxiety Stop: 04/18/19 22:54 Last Admin: 03/25/19 03:15 Dose: 0.5 mg Magnesium Hydroxide (Milk Of Magnesia) 30 ml PO HS PRN PRN Reason: Constipation Megestrol Acetate (Megace) 400 mg PO BID [facility]; Protocol Stop: 05/23/19 08:59 Last Admin: 03/29/19 09:00 Dose: Not Given Multivitamins/Vitamin C (Theragran) 1 tab PO DAILY JOSSELYN Stop: 05/19/19 08:59 Last Admin: 03/28/19 08:33 Dose: 1 tab Risperidone (Risperdal) 0.75 mg PO BID [facility]; Protocol Stop: 05/27/19 16:59 Last Admin: 03/29/19 09:00 Dose: Not Given Thiamine HCl (Vitamin B1) 100 mg PO DAILY JOSSELYN Stop: 05/19/19 08:59 Last Admin: 03/28/19 08:33 Dose: 100 mg Zolpidem Tartrate (Ambien) 5 mg PO HS PRN PRN Reason: Insomnia Stop: 05/18/19 22:54 Last Admin: 03/25/19 02:35 Dose: 5 mg General: No acute distress HEENT: PERRLA Neck: Supple, JVD, Thyromegaly Cardiovascular: Regular rate, Normal S1, Normal S2 Lungs: Clear to auscultation Abdomen: Bowel sounds, Soft Assessment/Plan - Assessment Assessment: 1.HYPERLIPIDEMIA. 2.DJD. 3.GERD. 4.DEMENTIA. 5.PSYCHOSIS - Plan Plan: continue current treatment Nutritional Asmnt/Malnutr-PDOC - Dietary Evaluation Malnutrition Findings (Please click <Entered> for more info): Nutritional Asmnt/Malnutrition Start: 03/24/19 13: 14 Text: Status: Complete Freq: Protocol: Document 03/24/19 13:15 HOLLIE (Rec: 03/24/19 13:18 ZULYELIAS [email or web address]) Nutritional Asmnt/Malnutrition Patient General Information Nutritional Screening Low Risk Diagnosis Psychosis NOS Pertinent Medical Hx/Surgical Hx DJD, Hyperlipidemia, Dementia, GERD Subjective Information Pt is a 73-year-old male admitted on 03/19 d/t psychosis. Spoke with RN, Carroll, stated Pt is not eating much and at times refusing meals all together. Pt did drink 8 oz. juice, will provide Pt with Ensure Enlive to promote nutrition intake. RN stated Pt was noted to be lethargic yesterday, but seems fine today. He will monitor lethargy. Per Progress NOTE (), Pt in the hospital pretty lethargic. RN notes () state, Pt is very lethargic, weak, confused. Meal/Nutrition Record: 03/20: Pt ate 100% meals 03/21: Pt ate 50-75% meals 03/22: Pt ate 25-50% meals 03/23: PT refused all meals HT: 56 WT: 139 LB (63.18 kg) BMI: 22.55 (Normal) GI: Soft, Non-tender BM: 03/21 x1 I/O: 180/Not Noted Skin: Dryness Carter: 16 Diet Order: Regular Estimated Energy Needs: ( Geriatric, CBW) 9482-1094 kcals (25-30 kcals/ kg) 63-76g Pro (1.0-1.2 g/kg) 7617-8290 ml (25-30 ml/kg) Current Diet Order/ Nutrition Support Regular Pertinent Medications Maalox (PRN), Lipitor, Folate, MOM (PRN), Megace, Theragran, Vitamin B1 Pertinent Labs 03/23: Glucose 138, AST 45, Alb 4.1 Nutritional Hx/Data Height 1.68 m Height (Calculated Centimeters) 167.6 Current Weight (lbs) 63.049 kg Weight (Calculated Kilograms) 63.0 Weight (Calculated Grams) 06627.3 [place] Body Weight 142 LB (64.55 kg) % [place] Body Weight 98 Body Mass Index (BMI) 22.4 Weight Status Approriate GI Symptoms GI Symptoms None Last BM 9/6 x1 Skin Integrity/Comment: Skin: Dryness Carter: 16 Current %PO Poor (25-49%) Estimated Nutritional Goals BEE in Kcals: Using Current wt Calories/Kcals/Kg 25-30 Kcals Calculated 7372-7857 Protein: Using Current wt Protein g/k.0-1.2 Protein Calculated 62-76 Fluid: ml 9272-7643 ml (25-30 ml/kg) Nutritional Problem 1. Problem Problem Inadequate energy intake Etiology r/t possible poor appetite/ lethargy Signs/Symptoms: aeb noted Pt refusal to eat meals and PO intake 0-25-50% x3 days. Malnutrition Related to Morbid Obesity Malnutrition related to morbid obesity No Intervention/Recommendation Comments 1. Continue with Regular diet as ordered. 2. Add Ensure Enlive TID ( completed). Expected Outcomes/Goals Expected Outcomes/Goals 1. PO intake to meet 75% of nutritional needs. 2. Monitor PO intake, wt, nutrition related labs, and skin integrity. 3. F/U as moderate risk in 3-5 days, 03/27-03/29
[2019-03-29] MEDS: Atorvastatin Calcium 10 MG TAB PO SCH (21:15)
--- NOTE | 2019-03-29 22:57 | Progress Notes ---
DATE: 03/29/2019 A 73-year-old male, currently in the hospital, refusing to speak with me this morning, very aggressive, hitting staff, not wearing any clothes right now. The patient stating he needs food for tonight, food for tomorrow night, and "sweets for tomorrow," very bizarre, extremely confused, not really making any sense on exam, whatsoever, just asking for food, lying in his bed naked, unpredictable, impulsive, recent dose changes to his medications. We will continue to monitor closely. Continue dosing of the Risperdal. JOB# [id number]
--- NOTE | 2019-03-30 09:17 | Progress Notes ---
DATE: SUBJECTIVE: The patient currently in the hospital, confused, mumbling, not really making much sense, was in his room walking around naked yesterday. Per staff, the patient is confused, disoriented. On [id number], the patient is still asking for food and not making much sense and very confused on exam, seems to be mumbling to self. ASSESSMENT: The patient remains symptomatic, ongoing psychotic symptoms. PLAN: We will continue to monitor, continue to titrate dosing of medications. [facility]# [id number]
--- NOTE | 2019-03-30 16:17 | General Progress Note ---
Subjective - Review of Systems Service Date: 03/30/19 Subjective: resting comfortaby no distress Objective - Results Result Diagrams: 03/23/19 18:30 03/23/19 18:30 Recent Labs: Laboratory Last Values WBC 9.6 Th/cmm (4.8-10.8) 03/23/19 18:30 RBC 5.01 Mil/cmm (3.80-5.80) 03/23/19 18:30 Hgb 17.3 gm/dL (12-16) 03/23/19 18:30 Hct 51.3 % (41.0-60) 03/23/19 18:30 MCV 102.4 fl (80-99) H 03/23/19 18:30 MCH 34.5 pg (27.0-31.0) H 03/23/19 18:30 MCHC Differential 33.7 pg (28.0-36.0) 03/23/19 18:30 RDW 14.4 % (11.5-20.0) 03/23/19 18:30 Plt Count 396 Th/cmm (150-400) 03/23/19 18:30 MPV 7.4 fl 03/23/19 18:30 Neutrophils % 80.0 % (40.0-80.0) 03/23/19 18:30 Lymphocytes % 13.8 % (20.0-50.0) L 03/23/19 18:30 Monocytes % 2.0 % (2.0-10.0) 03/23/19 18:30 Eosinophils % 1.7 % (0.0-5.0) 03/23/19 18:30 Basophils % 2.5 % (0.0-2.0) H 03/23/19 18:30 Sodium 144 mEq/L (136-145) 03/23/19 18:30 Potassium 3.8 mEq/L (3.5-5.1) 03/23/19 18:30 Chloride 105 mEq/L (98-107) 03/23/19 18:30 Carbon Dioxide 25.5 mEq/L (21.0-31.0) 03/23/19 18:30 Anion Gap 17.3 (7.0-16.0) H 03/23/19 18:30 BUN 15 mg/dL (7-25) 03/23/19 18:30 Creatinine 0.7 mg/dL (0.7-1.3) 03/23/19 18:30 Est GFR ( Amer) TNP 03/23/19 18:30 Est GFR (Non-Af Amer) TNP 03/23/19 18:30 BUN/Creatinine Ratio 21.4 03/23/19 18:30 Glucose 138 mg/dL (70-105) H 03/23/19 18:30 Calcium 9.1 mg/dL (8.6-10.3) 03/23/19 18:30 Total Bilirubin 0.8 mg/dL (0.3-1.0) 03/23/19 18:30 AST 45 U/L (13-39) H 03/23/19 18:30 ALT 28 U/L (7-52) 03/23/19 18:30 Alkaline Phosphatase 76 U/L (34-104) 03/23/19 18:30 Total Protein 7.3 gm/dL (6.0-8.3) 03/23/19 18:30 Albumin 4.1 gm/dL (4.2-5.5) L 03/23/19 18:30 Globulin 3.2 gm/dL 03/23/19 18:30 Albumin/Globulin Ratio 1.3 (1.0-1.8) 03/23/19 18:30 Triglycerides 115 mg/dL (<150) 03/23/19 18:30 Cholesterol 139 mg/dL (<200) 03/23/19 18:30 LDL Cholesterol Direct 57 mg/dL (75-193) L 03/23/19 18:30 HDL Cholesterol 59 mg/dL (23-92) 03/23/19 18:30 - Physical Exam Vitals and I&O: Vital Signs Temp 97.9 F 03/30/19 14:51 Pulse 75 03/30/19 14:51 Resp 20 03/30/19 14:51 BP 101/73 03/30/19 14:51 Pulse Ox 95 03/30/19 14:51 Intake & Output 03/29/19 03/30/19 03/30/19 18:59 06:59 18:59 Intake Total 600 120 Output Total 1 Balance 600 119 Intake: Oral 360 120 Other 240 Output: Urine/Stool Mix 1 Other: # Voids 3 1 # Bowel Movements 0 Active Medications: Current Medications Acetaminophen (Tylenol) 650 mg PO Q4HR PRN PRN Reason: Mild Pain / Temp above 100 Stop: 05/18/19 22:54 Last Admin: 03/20/19 14:31 Dose: 650 mg Al Hydrox/Mg Hydrox/Simethicone (Maalox) 30 ml PO Q4HR PRN PRN Reason: GI DISTRESS Stop: 05/18/19 22:54 Atorvastatin Calcium (Lipitor) 20 mg PO HS JOSSELYN Stop: 05/19/19 20:59 Last Admin: 03/29/19 21:15 Dose: 20 mg Chlordiazepoxide (Librium) 50 mg PO BID [facility]; Protocol Stop: 05/23/19 16:59 Last Admin: 03/29/19 09:00 Dose: Not Given Folic Acid (Folate) 1 mg PO DAILY [facility] Stop: 05/19/19 08:59 Last Admin: 03/29/19 09:00 Dose: Not Given Lorazepam (Ativan) 0.5 mg PO Q4HR PRN; Protocol PRN Reason: Anxiety Stop: 04/18/19 22:54 Last Admin: 03/30/19 01:02 Dose: 0.5 mg Magnesium Hydroxide (Milk Of Magnesia) 30 ml PO HS PRN PRN Reason: Constipation Megestrol Acetate (Megace) 400 mg PO BID [facility]; Protocol Stop: 05/23/19 08:59 Last Admin: 03/29/19 09:00 Dose: Not Given Multivitamins/Vitamin C (Theragran) 1 tab PO DAILY [facility] Stop: 05/19/19 08:59 Last Admin: 03/28/19 08:33 Dose: 1 tab Risperidone (Risperdal) 0.75 mg PO BID [facility]; Protocol Stop: 05/27/19 16:59 Last Admin: 03/29/19 09:00 Dose: Not Given Thiamine HCl (Vitamin B1) 100 mg PO DAILY [facility] Stop: 05/19/19 08:59 Last Admin: 03/28/19 08:33 Dose: 100 mg Zolpidem Tartrate (Ambien) 5 mg PO HS PRN PRN Reason: Insomnia Stop: 05/18/19 22:54 Last Admin: 03/29/19 21:15 Dose: 5 mg General: No acute distress HEENT: PERRLA Neck: Supple, JVD, Thyromegaly Cardiovascular: Regular rate, Normal S1, Normal S2 Lungs: Clear to auscultation Abdomen: Bowel sounds, Soft Assessment/Plan - Assessment Assessment: 1.HYPERLIPIDEMIA. 2.DJD. 3.GERD. 4.DEMENTIA. 5.PSYCHOSIS - Plan Plan: continue current treatment Nutritional Asmnt/Malnutr-PDOC - Dietary Evaluation Malnutrition Findings (Please click <Entered> for more info): Nutritional Asmnt/Malnutrition Start: 03/24/19 13: 14 Text: Status: Complete Freq: Protocol: Document 03/24/19 13:15 ZULYELIAS (Rec: 03/24/19 13:18 ZULYELIAS [email or web address]) Nutritional Asmnt/Malnutrition Patient General Information Nutritional Screening Low Risk Diagnosis Psychosis NOS Pertinent Medical Hx/Surgical Hx DJD, Hyperlipidemia, Dementia, GERD Subjective Information Pt is a 73-year-old male admitted on 03/19 d/t psychosis. Spoke with RN, Carroll, stated Pt is not eating much and at times refusing meals all together. Pt did drink 8 oz. juice, will provide Pt with Ensure Enlive to promote nutrition intake. RN stated Pt was noted to be lethargic yesterday, but seems fine today. He will monitor lethargy. Per Progress NOTE (), Pt in the hospital pretty lethargic. RN notes () state, Pt is very lethargic, weak, confused. Meal/Nutrition Record: 03/20: Pt ate 100% meals 03/21: Pt ate 50-75% meals 03/22: Pt ate 25-50% meals 03/23: PT refused all meals HT: 56 WT: 139 LB (63.18 kg) BMI: 22.55 (Normal) GI: Soft, Non-tender BM: 03/21 x1 I/O: 180/Not Noted Skin: Dryness Carter: 16 Diet Order: Regular Estimated Energy Needs: ( Geriatric, CBW) 8384-5196 kcals (25-30 kcals/ kg) 63-76g Pro (1.0-1.2 g/kg) 1978-8269 ml (25-30 ml/kg) Current Diet Order/ Nutrition Support Regular Pertinent Medications Maalox (PRN), Lipitor, Folate, MOM (PRN), Megace, Theragran, Vitamin B1 Pertinent Labs 03/23: Glucose 138, AST 45, Alb 4.1 Nutritional Hx/Data Height 1.68 m Height (Calculated Centimeters) 167.6 Current Weight (lbs) 63.049 kg Weight (Calculated Kilograms) 63.0 Weight (Calculated Grams) 12894.3 [place] Body Weight 142 LB (64.55 kg) % [place] Body Weight 98 Body Mass Index (BMI) 22.4 Weight Status Approriate GI Symptoms GI Symptoms None Last BM 9/6 x1 Skin Integrity/Comment: Skin: Dryness Carter: 16 Current %PO Poor (25-49%) Estimated Nutritional Goals BEE in Kcals: Using Current wt Calories/Kcals/Kg 25-30 Kcals Calculated 4137-3838 Protein: Using Current wt Protein g/k.0-1.2 Protein Calculated 62-76 Fluid: ml 7379-7159 ml (25-30 ml/kg) Nutritional Problem 1. Problem Problem Inadequate energy intake Etiology r/t possible poor appetite/ lethargy Signs/Symptoms: aeb noted Pt refusal to eat meals and PO intake 0-25-50% x3 days. Malnutrition Related to Morbid Obesity Malnutrition related to morbid obesity No Intervention/Recommendation Comments 1. Continue with Regular diet as ordered. 2. Add Ensure Enlive TID ( completed). Expected Outcomes/Goals Expected Outcomes/Goals 1. PO intake to meet 75% of nutritional needs. 2. Monitor PO intake, wt, nutrition related labs, and skin integrity. 3. F/U as moderate risk in 3-5 days, 03/27-03/29
[2019-03-30] MEDS: Atorvastatin Calcium 10 MG TAB PO SCH (21:12)
[2019-03-31] MEDS: Multivitamin Tab PO SCH (08:56)
--- NOTE | 2019-03-31 20:53 | Internal Medicine Prog Note ---
Internal Medicine Subjective - Subjective Service Date: 03/31/19 Patient seen and examined:: without staff (HE IS CONFUSED) Patient is:: awake, non-verbal, in bed, confused Per staff patient has:: no adverse event Internal Medicine Objective - Results Result Diagrams: 03/23/19 18:30 03/23/19 18:30 Recent Labs: Laboratory Last Values WBC 9.6 Th/cmm (4.8-10.8) 03/23/19 18:30 RBC 5.01 Mil/cmm (3.80-5.80) 03/23/19 18:30 Hgb 17.3 gm/dL (12-16) 03/23/19 18:30 Hct 51.3 % (41.0-60) 03/23/19 18:30 MCV 102.4 fl (80-99) H 03/23/19 18:30 MCH 34.5 pg (27.0-31.0) H 03/23/19 18:30 MCHC Differential 33.7 pg (28.0-36.0) 03/23/19 18:30 RDW 14.4 % (11.5-20.0) 03/23/19 18:30 Plt Count 396 Th/cmm (150-400) 03/23/19 18:30 MPV 7.4 fl 03/23/19 18:30 Neutrophils % 80.0 % (40.0-80.0) 03/23/19 18:30 Lymphocytes % 13.8 % (20.0-50.0) L 03/23/19 18:30 Monocytes % 2.0 % (2.0-10.0) 03/23/19 18:30 Eosinophils % 1.7 % (0.0-5.0) 03/23/19 18:30 Basophils % 2.5 % (0.0-2.0) H 03/23/19 18:30 Sodium 144 mEq/L (136-145) 03/23/19 18:30 Potassium 3.8 mEq/L (3.5-5.1) 03/23/19 18:30 Chloride 105 mEq/L (98-107) 03/23/19 18:30 Carbon Dioxide 25.5 mEq/L (21.0-31.0) 03/23/19 18:30 Anion Gap 17.3 (7.0-16.0) H 03/23/19 18:30 BUN 15 mg/dL (7-25) 03/23/19 18:30 Creatinine 0.7 mg/dL (0.7-1.3) 03/23/19 18:30 Est GFR ( Amer) TNP 03/23/19 18:30 Est GFR (Non-Af Amer) TNP 03/23/19 18:30 BUN/Creatinine Ratio 21.4 03/23/19 18:30 Glucose 138 mg/dL (70-105) H 03/23/19 18:30 Calcium 9.1 mg/dL (8.6-10.3) 03/23/19 18:30 Total Bilirubin 0.8 mg/dL (0.3-1.0) 03/23/19 18:30 AST 45 U/L (13-39) H 03/23/19 18:30 ALT 28 U/L (7-52) 03/23/19 18:30 Alkaline Phosphatase 76 U/L (34-104) 03/23/19 18:30 Total Protein 7.3 gm/dL (6.0-8.3) 03/23/19 18:30 Albumin 4.1 gm/dL (4.2-5.5) L 03/23/19 18:30 Globulin 3.2 gm/dL 03/23/19 18:30 Albumin/Globulin Ratio 1.3 (1.0-1.8) 03/23/19 18:30 Triglycerides 115 mg/dL (<150) 03/23/19 18:30 Cholesterol 139 mg/dL (<200) 03/23/19 18:30 LDL Cholesterol Direct 57 mg/dL (75-193) L 03/23/19 18:30 HDL Cholesterol 59 mg/dL (23-92) 03/23/19 18:30 - Physical Exam Vitals and I&O: Vital Signs Temp 97.7 F 03/31/19 14:04 Pulse 94 03/31/19 14:04 Resp 18 03/31/19 14:04 BP 148/72 03/31/19 14:04 Pulse Ox 97 03/31/19 14:04 Intake & Output 03/31/19 03/31/19 04/01/19 06:59 18:59 06:59 Intake Total 180 Balance 180 Intake: Oral 180 Other: # Voids 1 2 # Bowel Movements 0 0 Active Medications: Current Medications Acetaminophen (Tylenol) 650 mg PO Q4HR PRN PRN Reason: Mild Pain / Temp above 100 Stop: 05/18/19 22:54 Last Admin: 03/20/19 14:31 Dose: 650 mg Al Hydrox/Mg Hydrox/Simethicone (Maalox) 30 ml PO Q4HR PRN PRN Reason: GI DISTRESS Stop: 05/18/19 22:54 Atorvastatin Calcium (Lipitor) 20 mg PO HS JOSSELYN Stop: 05/19/19 20:59 Last Admin: 03/30/19 21:12 Dose: 20 mg Chlordiazepoxide (Librium) 50 mg PO BID [facility]; Protocol Stop: 05/23/19 16:59 Last Admin: 03/31/19 16:11 Dose: 50 mg Folic Acid (Folate) 1 mg PO DAILY [facility] Stop: 05/19/19 08:59 Last Admin: 03/31/19 08:56 Dose: 1 mg Lorazepam (Ativan) 0.5 mg PO Q4HR PRN; Protocol PRN Reason: Anxiety Stop: 04/18/19 22:54 Last Admin: 03/30/19 01:02 Dose: 0.5 mg Magnesium Hydroxide (Milk Of Magnesia) 30 ml PO HS PRN PRN Reason: Constipation Megestrol Acetate (Megace) 400 mg PO BID [facility]; Protocol Stop: 05/23/19 08:59 Last Admin: 03/31/19 16:11 Dose: Not Given Multivitamins/Vitamin C (Theragran) 1 tab PO DAILY [facility] Stop: 05/19/19 08:59 Last Admin: 03/31/19 08:56 Dose: 1 tab Risperidone (Risperdal) 1 mg PO BID [facility]; Protocol Stop: 05/30/19 08:59 Last Admin: 03/31/19 16:11 Dose: 1 mg Thiamine HCl (Vitamin B1) 100 mg PO DAILY [facility] Stop: 05/19/19 08:59 Last Admin: 03/31/19 08:56 Dose: 100 mg Zolpidem Tartrate (Ambien) 5 mg PO HS PRN PRN Reason: Insomnia Stop: 05/18/19 22:54 Last Admin: 03/29/19 21:15 Dose: 5 mg General: demented HEENT: NC/AT, PERRLA, EOMI, anicteric sclerae, throat clear Neck: Supple, No JVD, No thyromegaly, +2 carotid pulse wo bruit, No LAD Lungs: CTAB Cardiovascular: RRR, Normal S1, Normal S2, without murmur Abdomen: non-tender, non-distended Neurological: no change Internal Medicine Assmt/Plan - Assessment Assessment: 1.HYPERLIPIDEMIA. 2.DJD. 3.NACHO. 4.DEMENTIA,\. 5.PSYCHOSIS - Plan Plan: CONTINUE ON CURRENT MEDICATION AND DIET. Nutritional Asmnt/Malnutr-PDOC - Dietary Evaluation Malnutrition Findings (Please click <Entered> for more info): Nutritional Asmnt/Malnutrition Start: 03/24/19 13: 14 Text: Status: Complete Freq: Protocol: Document 03/24/19 13:15 HOLLIE (Rec: 03/24/19 13:18 HOLLIE [id number]) Nutritional Asmnt/Malnutrition Patient General Information Nutritional Screening Low Risk Diagnosis Psychosis NOS Pertinent Medical Hx/Surgical Hx DJD, Hyperlipidemia, Dementia, GERD Subjective Information Pt is a 73-year-old male admitted on 03/19 d/t psychosis. Spoke with RNCarroll, stated Pt is not eating much and at times refusing meals all together. Pt did drink 8 oz. juice, will provide Pt with Ensure Enlive to promote nutrition intake. RN stated Pt was noted to be lethargic yesterday, but seems fine today. He will monitor lethargy. Per Progress NOTE (), Pt in the hospital pretty lethargic. RN notes () state, Pt is very lethargic, weak, confused. Meal/Nutrition Record: 03/20: Pt ate 100% meals 03/21: Pt ate 50-75% meals 03/22: Pt ate 25-50% meals 03/23: PT refused all meals HT: 56 WT: 139 LB (63.18 kg) BMI: 22.55 (Normal) GI: Soft, Non-tender BM: 03/21 x1 I/O: 180/Not Noted Skin: Dryness Carter: 16 Diet Order: Regular Estimated Energy Needs: ( Geriatric, CBW) 1757-1038 kcals (25-30 kcals/ kg) 63-76g Pro (1.0-1.2 g/kg) 7821-6945 ml (25-30 ml/kg) Current Diet Order/ Nutrition Support Regular Pertinent Medications Maalox (PRN), Lipitor, Folate, MOM (PRN), Megace, Theragran, Vitamin B1 Pertinent Labs 03/23: Glucose 138, AST 45, Alb 4.1 Nutritional Hx/Data Height 1.68 m Height (Calculated Centimeters) 167.6 Current Weight (lbs) 63.049 kg Weight (Calculated Kilograms) 63.0 Weight (Calculated Grams) 29687.3 [place] Body Weight 142 LB (64.55 kg) % [place] Body Weight 98 Body Mass Index (BMI) 22.4 Weight Status Approriate GI Symptoms GI Symptoms None Last BM 03/21 x1 Skin Integrity/Comment: Skin: Dryness Carter: 16 Current %PO Poor (25-49%) Estimated Nutritional Goals BEE in Kcals: Using Current wt Calories/Kcals/Kg 25-30 Kcals Calculated 2984-8501 Protein: Using Current wt Protein g/k.0-1.2 Protein Calculated 62-76 Fluid: ml 8735-7700 ml (25-30 ml/kg) Nutritional Problem 1. Problem Problem Inadequate energy intake Etiology r/t possible poor appetite/ lethargy Signs/Symptoms: aeb noted Pt refusal to eat meals and PO intake 0-25-50% x3 days. Malnutrition Related to Morbid Obesity Malnutrition related to morbid obesity No Intervention/Recommendation Comments 1. Continue with Regular diet as ordered. 2. Add Ensure Enlive TID ( completed). Expected Outcomes/Goals Expected Outcomes/Goals 1. PO intake to meet 75% of nutritional needs. 2. Monitor PO intake, wt, nutrition related labs, and skin integrity. 3. F/U as moderate risk in 3-5 days, 03/27-03/29
[2019-03-31] MEDS: Atorvastatin Calcium 10 MG TAB PO SCH (21:12)
[2019-04-01] MEDS: Multivitamin Tab PO SCH (08:24)
--- NOTE | 2019-04-01 18:46 | Progress Notes ---
DATE: 04/01/2019 SUBJECTIVE: Chart reviewed and the patient interviewed. Also discussed the patient's condition with the staff and reviewed records and labs. The patient still has disorganized thoughts and is still forgetful. The patient also is still confused and needs lots of redirections. The patient also did take Risperdal yesterday that was increased to 1 mg twice a day, which seems to be helping his agitation and his irritability. The patient is still suspicious and paranoid. Otherwise, the patient is compliant with his medications since yesterday. ASSESSMENT: The patient is still agitated and is still in irritable mood. TREATMENT PLAN: We will continue monitoring his behavior and condition closely. Also, we will continue to work on his irritable mood and his agitation and also his compliance with taking his medications. JOB# [id number]
--- NOTE | 2019-04-01 21:00 | Internal Medicine Prog Note ---
Internal Medicine Subjective - Subjective Service Date: 04/01/19 Patient seen and examined:: without staff (he is doing better) Patient is:: awake, non-verbal, in bed, confused Per staff patient has:: no adverse event Internal Medicine Objective - Results Result Diagrams: 03/23/19 18:30 03/23/19 18:30 Recent Labs: Laboratory Last Values WBC 9.6 Th/cmm (4.8-10.8) 03/23/19 18:30 RBC 5.01 Mil/cmm (3.80-5.80) 03/23/19 18:30 Hgb 17.3 gm/dL (12-16) 03/23/19 18:30 Hct 51.3 % (41.0-60) 03/23/19 18:30 MCV 102.4 fl (80-99) H 03/23/19 18:30 MCH 34.5 pg (27.0-31.0) H 03/23/19 18:30 MCHC Differential 33.7 pg (28.0-36.0) 03/23/19 18:30 RDW 14.4 % (11.5-20.0) 03/23/19 18:30 Plt Count 396 Th/cmm (150-400) 03/23/19 18:30 MPV 7.4 fl 03/23/19 18:30 Neutrophils % 80.0 % (40.0-80.0) 03/23/19 18:30 Lymphocytes % 13.8 % (20.0-50.0) L 03/23/19 18:30 Monocytes % 2.0 % (2.0-10.0) 03/23/19 18:30 Eosinophils % 1.7 % (0.0-5.0) 03/23/19 18:30 Basophils % 2.5 % (0.0-2.0) H 03/23/19 18:30 Sodium 144 mEq/L (136-145) 03/23/19 18:30 Potassium 3.8 mEq/L (3.5-5.1) 03/23/19 18:30 Chloride 105 mEq/L (98-107) 03/23/19 18:30 Carbon Dioxide 25.5 mEq/L (21.0-31.0) 03/23/19 18:30 Anion Gap 17.3 (7.0-16.0) H 03/23/19 18:30 BUN 15 mg/dL (7-25) 03/23/19 18:30 Creatinine 0.7 mg/dL (0.7-1.3) 03/23/19 18:30 Est GFR ( Amer) TNP 03/23/19 18:30 Est GFR (Non-Af Amer) TNP 03/23/19 18:30 BUN/Creatinine Ratio 21.4 03/23/19 18:30 Glucose 138 mg/dL (70-105) H 03/23/19 18:30 Calcium 9.1 mg/dL (8.6-10.3) 03/23/19 18:30 Total Bilirubin 0.8 mg/dL (0.3-1.0) 03/23/19 18:30 AST 45 U/L (13-39) H 03/23/19 18:30 ALT 28 U/L (7-52) 03/23/19 18:30 Alkaline Phosphatase 76 U/L (34-104) 03/23/19 18:30 Total Protein 7.3 gm/dL (6.0-8.3) 03/23/19 18:30 Albumin 4.1 gm/dL (4.2-5.5) L 03/23/19 18:30 Globulin 3.2 gm/dL 03/23/19 18:30 Albumin/Globulin Ratio 1.3 (1.0-1.8) 03/23/19 18:30 Triglycerides 115 mg/dL (<150) 03/23/19 18:30 Cholesterol 139 mg/dL (<200) 03/23/19 18:30 LDL Cholesterol Direct 57 mg/dL (75-193) L 03/23/19 18:30 HDL Cholesterol 59 mg/dL (23-92) 03/23/19 18:30 - Physical Exam Vitals and I&O: Vital Signs Temp 95.5 F 04/01/19 20:08 Pulse 87 04/01/19 20:08 Resp 19 04/01/19 20:08 BP 96/61 04/01/19 20:08 Pulse Ox 95 04/01/19 20:08 Intake & Output 04/01/19 04/01/19 04/02/19 06:59 18:59 06:59 Intake Total 600 60 Balance 600 60 Intake: Oral 600 60 Other: # Voids 3 2 1 # Bowel Movements 0 0 0 Active Medications: Current Medications Acetaminophen (Tylenol) 650 mg PO Q4HR PRN PRN Reason: Mild Pain / Temp above 100 Stop: 05/18/19 22:54 Last Admin: 03/20/19 14:31 Dose: 650 mg Al Hydrox/Mg Hydrox/Simethicone (Maalox) 30 ml PO Q4HR PRN PRN Reason: GI DISTRESS Stop: 05/18/19 22:54 Atorvastatin Calcium (Lipitor) 20 mg PO HS JOSSELYN Stop: 05/19/19 20:59 Last Admin: 03/31/19 21:12 Dose: 20 mg Folic Acid (Folate) 1 mg PO DAILY JOSSELYN Stop: 05/19/19 08:59 Last Admin: 04/01/19 08:25 Dose: Not Given Lorazepam (Ativan) 0.5 mg PO Q4HR PRN; Protocol PRN Reason: Anxiety Stop: 04/18/19 22:54 Last Admin: 03/30/19 01:02 Dose: 0.5 mg Magnesium Hydroxide (Milk Of Magnesia) 30 ml PO HS PRN PRN Reason: Constipation Megestrol Acetate (Megace) 400 mg PO BID [facility]; Protocol Stop: 05/23/19 08:59 Last Admin: 04/01/19 18:05 Dose: Not Given Multivitamins/Vitamin C (Theragran) 1 tab PO DAILY JOSSELYN Stop: 05/19/19 08:59 Last Admin: 04/01/19 08:24 Dose: Not Given Risperidone (Risperdal) 1 mg PO BID [facility]; Protocol Stop: 05/30/19 08:59 Last Admin: 04/01/19 18:05 Dose: Not Given Thiamine HCl (Vitamin B1) 100 mg PO DAILY JOSSELYN Stop: 05/19/19 08:59 Last Admin: 04/01/19 08:24 Dose: Not Given Zolpidem Tartrate (Ambien) 5 mg PO HS PRN PRN Reason: Insomnia Stop: 05/18/19 22:54 Last Admin: 03/29/19 21:15 Dose: 5 mg General: demented HEENT: NC/AT, PERRLA, EOMI, anicteric sclerae, throat clear Neck: Supple, No JVD, No thyromegaly, +2 carotid pulse wo bruit, No LAD Lungs: CTAB Cardiovascular: RRR, Normal S1, Normal S2, without murmur Abdomen: non-tender, non-distended Neurological: no change Internal Medicine Assmt/Plan - Assessment Assessment: 1.HYPERLIPIDEMIA. 2.DJD. 3.NACHO. 4.DEMENTIA,\. 5.PSYCHOSIS - Plan Plan: CONTINUE ON CURRENT MEDICATION AND DIET. Nutritional Asmnt/Malnutr-PDOC - Dietary Evaluation Malnutrition Findings (Please click <Entered> for more info): Nutritional Asmnt/Malnutrition Start: 03/24/19 13: 14 Text: Status: Complete Freq: Protocol: Document 03/24/19 13:15 HOLLIE (Rec: 03/24/19 13:18 HOLLIE [id number]) Nutritional Asmnt/Malnutrition Patient General Information Nutritional Screening Low Risk Diagnosis Psychosis NOS Pertinent Medical Hx/Surgical Hx DJD, Hyperlipidemia, Dementia, GERD Subjective Information Pt is a 73-year-old male admitted on 03/19 d/t psychosis. Spoke with RN, Carroll, stated Pt is not eating much and at times refusing meals all together. Pt did drink 8 oz. juice, will provide Pt with Ensure Enlive to promote nutrition intake. RN stated Pt was noted to be lethargic yesterday, but seems fine today. He will monitor lethargy. Per Progress NOTE (), Pt in the hospital pretty lethargic. RN notes () state, Pt is very lethargic, weak, confused. Meal/Nutrition Record: 03/20: Pt ate 100% meals 03/21: Pt ate 50-75% meals 03/22: Pt ate 25-50% meals 03/23: PT refused all meals HT: 56 WT: 139 LB (63.18 kg) BMI: 22.55 (Normal) GI: Soft, Non-tender BM: 03/21 x1 I/O: 180/Not Noted Skin: Dryness Carter: 16 Diet Order: Regular Estimated Energy Needs: ( Geriatric, CBW) 0845-4102 kcals (25-30 kcals/ kg) 63-76g Pro (1.0-1.2 g/kg) 3704-1169 ml (25-30 ml/kg) Current Diet Order/ Nutrition Support Regular Pertinent Medications Maalox (PRN), Lipitor, Folate, MOM (PRN), Megace, Theragran, Vitamin B1 Pertinent Labs 03/23: Glucose 138, AST 45, Alb 4.1 Nutritional Hx/Data Height 1.68 m Height (Calculated Centimeters) 167.6 Current Weight (lbs) 63.049 kg Weight (Calculated Kilograms) 63.0 Weight (Calculated Grams) 55186.3 [place] Body Weight 142 LB (64.55 kg) % [place] Body Weight 98 Body Mass Index (BMI) 22.4 Weight Status Approriate GI Symptoms GI Symptoms None Last BM 03/21 x1 Skin Integrity/Comment: Skin: Dryness Carter: 16 Current %PO Poor (25-49%) Estimated Nutritional Goals BEE in Kcals: Using Current wt Calories/Kcals/Kg 25-30 Kcals Calculated 7754-5946 Protein: Using Current wt Protein g/k.0-1.2 Protein Calculated 62-76 Fluid: ml 7081-9913 ml (25-30 ml/kg) Nutritional Problem 1. Problem Problem Inadequate energy intake Etiology r/t possible poor appetite/ lethargy Signs/Symptoms: aeb noted Pt refusal to eat meals and PO intake 0-25-50% x3 days. Malnutrition Related to Morbid Obesity Malnutrition related to morbid obesity No Intervention/Recommendation Comments 1. Continue with Regular diet as ordered. 2. Add Ensure Enlive TID ( completed). Expected Outcomes/Goals Expected Outcomes/Goals 1. PO intake to meet 75% of nutritional needs. 2. Monitor PO intake, wt, nutrition related labs, and skin integrity. 3. F/U as moderate risk in 3-5 days, 03/27-03/29
[2019-04-01] MEDS: Atorvastatin Calcium 10 MG TAB PO SCH (21:05)
--- NOTE | 2019-04-02 08:01 | Progress Notes ---
DATE: SUBJECTIVE: Chart reviewed and the patient interviewed. Also discussed the patient's condition with the staff and reviewed records and labs. The patient is still confused and is still depressed and withdrawn. The patient also still has poor appetite and not drinking much and needs lots of encouragement to eat and to drink. The patient also is still reluctant to take medications and he yesterday refused to take medications. Otherwise, the patient is exhibiting no major behavior problems, but needs more encouragement. OBJECTIVE: Vital signs are stable and gait is steady. ASSESSMENT: The patient is still confused and depressed. TREATMENT PLAN: Continue to encourage the patient to comply with taking his medications. Also, working with rn case management in regard to his discharge plans and possible placement issue. JOB# [id number]
[2019-04-02] MEDS: Multivitamin Tab PO SCH (09:18)
[2019-04-02] MEDS: Atorvastatin Calcium 10 MG TAB PO SCH (20:21)
--- NOTE | 2019-04-02 20:46 | Internal Medicine Prog Note ---
Internal Medicine Subjective - Subjective Service Date: 04/02/19 Patient seen and examined:: without staff (HE IS DOING WELL) Patient is:: awake, non-verbal, in bed, confused Per staff patient has:: no adverse event Internal Medicine Objective - Results Result Diagrams: 03/23/19 18:30 03/23/19 18:30 Recent Labs: Laboratory Last Values WBC 9.6 Th/cmm (4.8-10.8) 03/23/19 18:30 RBC 5.01 Mil/cmm (3.80-5.80) 03/23/19 18:30 Hgb 17.3 gm/dL (12-16) 03/23/19 18:30 Hct 51.3 % (41.0-60) 03/23/19 18:30 MCV 102.4 fl (80-99) H 03/23/19 18:30 MCH 34.5 pg (27.0-31.0) H 03/23/19 18:30 MCHC Differential 33.7 pg (28.0-36.0) 03/23/19 18:30 RDW 14.4 % (11.5-20.0) 03/23/19 18:30 Plt Count 396 Th/cmm (150-400) 03/23/19 18:30 MPV 7.4 fl 03/23/19 18:30 Neutrophils % 80.0 % (40.0-80.0) 03/23/19 18:30 Lymphocytes % 13.8 % (20.0-50.0) L 03/23/19 18:30 Monocytes % 2.0 % (2.0-10.0) 03/23/19 18:30 Eosinophils % 1.7 % (0.0-5.0) 03/23/19 18:30 Basophils % 2.5 % (0.0-2.0) H 03/23/19 18:30 Sodium 144 mEq/L (136-145) 03/23/19 18:30 Potassium 3.8 mEq/L (3.5-5.1) 03/23/19 18:30 Chloride 105 mEq/L (98-107) 03/23/19 18:30 Carbon Dioxide 25.5 mEq/L (21.0-31.0) 03/23/19 18:30 Anion Gap 17.3 (7.0-16.0) H 03/23/19 18:30 BUN 15 mg/dL (7-25) 03/23/19 18:30 Creatinine 0.7 mg/dL (0.7-1.3) 03/23/19 18:30 Est GFR ( Amer) TNP 03/23/19 18:30 Est GFR (Non-Af Amer) TNP 03/23/19 18:30 BUN/Creatinine Ratio 21.4 03/23/19 18:30 Glucose 138 mg/dL (70-105) H 03/23/19 18:30 Calcium 9.1 mg/dL (8.6-10.3) 03/23/19 18:30 Total Bilirubin 0.8 mg/dL (0.3-1.0) 03/23/19 18:30 AST 45 U/L (13-39) H 03/23/19 18:30 ALT 28 U/L (7-52) 03/23/19 18:30 Alkaline Phosphatase 76 U/L (34-104) 03/23/19 18:30 Total Protein 7.3 gm/dL (6.0-8.3) 03/23/19 18:30 Albumin 4.1 gm/dL (4.2-5.5) L 03/23/19 18:30 Globulin 3.2 gm/dL 03/23/19 18:30 Albumin/Globulin Ratio 1.3 (1.0-1.8) 03/23/19 18:30 Triglycerides 115 mg/dL (<150) 03/23/19 18:30 Cholesterol 139 mg/dL (<200) 03/23/19 18:30 LDL Cholesterol Direct 57 mg/dL (75-193) L 03/23/19 18:30 HDL Cholesterol 59 mg/dL (23-92) 03/23/19 18:30 - Physical Exam Vitals and I&O: Vital Signs Temp 97.6 F 04/02/19 14:00 Pulse 104 04/02/19 14:00 Resp 18 04/02/19 14:00 BP 112/70 04/02/19 14:00 Pulse Ox 100 04/02/19 14:00 Intake & Output 04/02/19 04/02/19 04/03/19 06:59 18:59 06:59 Intake Total 60 960 Balance 60 960 Intake: Oral 60 720 Other 240 Other: # Voids 3 3 # Bowel Movements 0 1 Active Medications: Current Medications Acetaminophen (Tylenol) 650 mg PO Q4HR PRN PRN Reason: Mild Pain / Temp above 100 Stop: 05/18/19 22:54 Last Admin: 03/20/19 14:31 Dose: 650 mg Al Hydrox/Mg Hydrox/Simethicone (Maalox) 30 ml PO Q4HR PRN PRN Reason: GI DISTRESS Stop: 05/18/19 22:54 Atorvastatin Calcium (Lipitor) 20 mg PO HS JOSSELYN Stop: 05/19/19 20:59 Last Admin: 04/02/19 20:21 Dose: 20 mg Folic Acid (Folate) 1 mg PO DAILY JOSSELYN Stop: 05/19/19 08:59 Last Admin: 04/02/19 09:19 Dose: Not Given Lorazepam (Ativan) 0.5 mg PO Q4HR PRN; Protocol PRN Reason: Anxiety Stop: 04/18/19 22:54 Last Admin: 03/30/19 01:02 Dose: 0.5 mg Magnesium Hydroxide (Milk Of Magnesia) 30 ml PO HS PRN PRN Reason: Constipation Megestrol Acetate (Megace) 400 mg PO BID [facility]; Protocol Stop: 05/23/19 08:59 Last Admin: 04/02/19 17:18 Dose: Not Given Multivitamins/Vitamin C (Theragran) 1 tab PO DAILY JOSSELYN Stop: 05/19/19 08:59 Last Admin: 04/02/19 09:18 Dose: Not Given Risperidone (Risperdal) 1 mg PO BID [facility]; Protocol Stop: 05/30/19 08:59 Last Admin: 04/02/19 17:18 Dose: Not Given Thiamine HCl (Vitamin B1) 100 mg PO DAILY JOSSELYN Stop: 05/19/19 08:59 Last Admin: 04/02/19 09:19 Dose: Not Given Zolpidem Tartrate (Ambien) 5 mg PO HS PRN PRN Reason: Insomnia Stop: 05/18/19 22:54 Last Admin: 03/29/19 21:15 Dose: 5 mg General: demented HEENT: NC/AT, PERRLA, EOMI, anicteric sclerae, throat clear Neck: Supple, No JVD, No thyromegaly, +2 carotid pulse wo bruit, No LAD Lungs: CTAB Cardiovascular: RRR, Normal S1, Normal S2, without murmur Abdomen: non-tender, non-distended Neurological: no change Internal Medicine Assmt/Plan - Assessment Assessment: 1.HYPERLIPIDEMIA. 2.DJD. 3.NACHO. 4.DEMENTIA,\. 5.PSYCHOSIS - Plan Plan: CONTINUE ON CURRENT MEDICATION AND DIET. Nutritional Asmnt/Malnutr-PDOC - Dietary Evaluation Malnutrition Findings (Please click <Entered> for more info): Nutritional Asmnt/Malnutrition Start: 03/24/19 13: 14 Text: Status: Complete Freq: Protocol: Document 03/24/19 13:15 HOLLIE (Rec: 03/24/19 13:18 HOLLIE [id number]) Nutritional Asmnt/Malnutrition Patient General Information Nutritional Screening Low Risk Diagnosis Psychosis NOS Pertinent Medical Hx/Surgical Hx DJD, Hyperlipidemia, Dementia, GERD Subjective Information Pt is a 73-year-old male admitted on 03/19 d/t psychosis. Spoke with RN, Carroll, stated Pt is not eating much and at times refusing meals all together. Pt did drink 8 oz. juice, will provide Pt with Ensure Enlive to promote nutrition intake. RN stated Pt was noted to be lethargic yesterday, but seems fine today. He will monitor lethargy. Per Progress NOTE (), Pt in the hospital pretty lethargic. RN notes () state, Pt is very lethargic, weak, confused. Meal/Nutrition Record: 03/20: Pt ate 100% meals 03/21: Pt ate 50-75% meals 03/22: Pt ate 25-50% meals 03/23: PT refused all meals HT: 56 WT: 139 LB (63.18 kg) BMI: 22.55 (Normal) GI: Soft, Non-tender BM: 03/21 x1 I/O: 180/Not Noted Skin: Dryness Carter: 16 Diet Order: Regular Estimated Energy Needs: ( Geriatric, CBW) 0919-3222 kcals (25-30 kcals/ kg) 63-76g Pro (1.0-1.2 g/kg) 1483-6628 ml (25-30 ml/kg) Current Diet Order/ Nutrition Support Regular Pertinent Medications Maalox (PRN), Lipitor, Folate, MOM (PRN), Megace, Theragran, Vitamin B1 Pertinent Labs 03/23: Glucose 138, AST 45, Alb 4.1 Nutritional Hx/Data Height 1.68 m Height (Calculated Centimeters) 167.6 Current Weight (lbs) 63.049 kg Weight (Calculated Kilograms) 63.0 Weight (Calculated Grams) 07822.3 [place] Body Weight 142 LB (64.55 kg) % [place] Body Weight 98 Body Mass Index (BMI) 22.4 Weight Status Approriate GI Symptoms GI Symptoms None Last BM 03/21 x1 Skin Integrity/Comment: Skin: Dryness Carter: 16 Current %PO Poor (25-49%) Estimated Nutritional Goals BEE in Kcals: Using Current wt Calories/Kcals/Kg 25-30 Kcals Calculated 6625-3174 Protein: Using Current wt Protein g/k.0-1.2 Protein Calculated 62-76 Fluid: ml 2869-5329 ml (25-30 ml/kg) Nutritional Problem 1. Problem Problem Inadequate energy intake Etiology r/t possible poor appetite/ lethargy Signs/Symptoms: aeb noted Pt refusal to eat meals and PO intake 0-25-50% x3 days. Malnutrition Related to Morbid Obesity Malnutrition related to morbid obesity No Intervention/Recommendation Comments 1. Continue with Regular diet as ordered. 2. Add Ensure Enlive TID ( completed). Expected Outcomes/Goals Expected Outcomes/Goals 1. PO intake to meet 75% of nutritional needs. 2. Monitor PO intake, wt, nutrition related labs, and skin integrity. 3. F/U as moderate risk in 3-5 days, 03/27-03/29
--- NOTE | 2019-04-03 07:44 | Discharge Summary ---
DATE OF DISCHARGE: 04/03/2019 AGE: 73. SEX: Male. PHYSICIAN: Dr. Cherry. FINAL DIAGNOSIS AND PRIMARY DIAGNOSIS: Schizophrenic disorder. SECONDARY DIAGNOSIS: Dementia, mild to moderate. REASON FOR HOSPITALIZATION: The patient was admitted to the hospital because of increased agitation and increased aggressive behavior and was refusing medications. Also, has history of alcoholism. HOSPITAL COURSE: The patient continued to be anxious and confused. The patient also was easily irritable and easily agitated. The patient was started on Risperdal and the dose adjusted to 1 mg twice a day. He was refusing to take medications in the beginning of his hospitalization, but the patient later on, was compliant with taking his medications. The patient was not suicidal or homicidal and the patient was less aggressive and less agitated and the patient was discharged from the hospital. Physical exam of the patient showed no major medical problems while in the hospital. The patient has a diagnosis of hyperlipidemia, degenerative joint disease and gastroesophageal reflux disease. AFTER DISCHARGE PLANS: The patient discharged from the hospital and went back to the nursing facility and plan to be followed there with the facility psychiatrist. EXPECTED OUTCOME AFTER DISCHARGE: Fair if the patient continues to take his psychotropic medications and follow up with discharge plans. JOB# [id number]
[2019-04-03] MEDS: Multivitamin Tab PO SCH (08:16)
--- NOTE | 2019-04-03 20:05 | Internal Medicine Prog Note ---
Internal Medicine Subjective - Subjective Service Date: 04/03/19 Patient seen and examined:: without staff (he is doing well) Patient is:: awake, non-verbal, in bed, confused Per staff patient has:: no adverse event Internal Medicine Objective - Results Result Diagrams: 03/23/19 18:30 03/23/19 18:30 Recent Labs: Laboratory Last Values WBC 9.6 Th/cmm (4.8-10.8) 03/23/19 18:30 RBC 5.01 Mil/cmm (3.80-5.80) 03/23/19 18:30 Hgb 17.3 gm/dL (12-16) 03/23/19 18:30 Hct 51.3 % (41.0-60) 03/23/19 18:30 MCV 102.4 fl (80-99) H 03/23/19 18:30 MCH 34.5 pg (27.0-31.0) H 03/23/19 18:30 MCHC Differential 33.7 pg (28.0-36.0) 03/23/19 18:30 RDW 14.4 % (11.5-20.0) 03/23/19 18:30 Plt Count 396 Th/cmm (150-400) 03/23/19 18:30 MPV 7.4 fl 03/23/19 18:30 Neutrophils % 80.0 % (40.0-80.0) 03/23/19 18:30 Lymphocytes % 13.8 % (20.0-50.0) L 03/23/19 18:30 Monocytes % 2.0 % (2.0-10.0) 03/23/19 18:30 Eosinophils % 1.7 % (0.0-5.0) 03/23/19 18:30 Basophils % 2.5 % (0.0-2.0) H 03/23/19 18:30 Sodium 144 mEq/L (136-145) 03/23/19 18:30 Potassium 3.8 mEq/L (3.5-5.1) 03/23/19 18:30 Chloride 105 mEq/L (98-107) 03/23/19 18:30 Carbon Dioxide 25.5 mEq/L (21.0-31.0) 03/23/19 18:30 Anion Gap 17.3 (7.0-16.0) H 03/23/19 18:30 BUN 15 mg/dL (7-25) 03/23/19 18:30 Creatinine 0.7 mg/dL (0.7-1.3) 03/23/19 18:30 Est GFR ( Amer) TNP 03/23/19 18:30 Est GFR (Non-Af Amer) TNP 03/23/19 18:30 BUN/Creatinine Ratio 21.4 03/23/19 18:30 Glucose 138 mg/dL (70-105) H 03/23/19 18:30 Calcium 9.1 mg/dL (8.6-10.3) 03/23/19 18:30 Total Bilirubin 0.8 mg/dL (0.3-1.0) 03/23/19 18:30 AST 45 U/L (13-39) H 03/23/19 18:30 ALT 28 U/L (7-52) 03/23/19 18:30 Alkaline Phosphatase 76 U/L (34-104) 03/23/19 18:30 Total Protein 7.3 gm/dL (6.0-8.3) 03/23/19 18:30 Albumin 4.1 gm/dL (4.2-5.5) L 03/23/19 18:30 Globulin 3.2 gm/dL 03/23/19 18:30 Albumin/Globulin Ratio 1.3 (1.0-1.8) 03/23/19 18:30 Triglycerides 115 mg/dL (<150) 03/23/19 18:30 Cholesterol 139 mg/dL (<200) 03/23/19 18:30 LDL Cholesterol Direct 57 mg/dL (75-193) L 03/23/19 18:30 HDL Cholesterol 59 mg/dL (23-92) 03/23/19 18:30 - Physical Exam Vitals and I&O: Vital Signs Temp 97.9 F 04/03/19 16:45 Pulse 93 04/03/19 16:45 Resp 20 04/03/19 16:45 BP 121/72 04/03/19 16:45 Pulse Ox 97 04/03/19 16:45 Intake & Output 04/03/19 04/03/19 04/04/19 06:59 18:59 06:59 Intake Total 120 Balance 120 Intake: Oral 120 Other: # Voids 3 Active Medications: Current Medications Acetaminophen (Tylenol) 650 mg PO Q4HR PRN PRN Reason: Mild Pain / Temp above 100 Stop: 05/18/19 22:54 Last Admin: 03/20/19 14:31 Dose: 650 mg Al Hydrox/Mg Hydrox/Simethicone (Maalox) 30 ml PO Q4HR PRN PRN Reason: GI DISTRESS Stop: 05/18/19 22:54 Atorvastatin Calcium (Lipitor) 20 mg PO HS JOSSELYN Stop: 05/19/19 20:59 Last Admin: 04/02/19 20:21 Dose: 20 mg Folic Acid (Folate) 1 mg PO DAILY JOSSELYN Stop: 05/19/19 08:59 Last Admin: 04/03/19 08:16 Dose: 1 mg Magnesium Hydroxide (Milk Of Magnesia) 30 ml PO HS PRN PRN Reason: Constipation Megestrol Acetate (Megace) 400 mg PO BID [facility]; Protocol Stop: 05/23/19 08:59 Last Admin: 04/03/19 16:40 Dose: Not Given Multivitamins/Vitamin C (Theragran) 1 tab PO DAILY [facility] Stop: 05/19/19 08:59 Last Admin: 04/03/19 08:16 Dose: 1 tab Risperidone (Risperdal) 1 mg PO BID [facility]; Protocol Stop: 05/30/19 08:59 Last Admin: 04/03/19 16:40 Dose: Not Given Thiamine HCl (Vitamin B1) 100 mg PO DAILY [facility] Stop: 05/19/19 08:59 Last Admin: 04/03/19 08:16 Dose: 100 mg General: demented HEENT: NC/AT, PERRLA, EOMI, anicteric sclerae, throat clear Neck: Supple, No JVD, No thyromegaly, +2 carotid pulse wo bruit, No LAD Lungs: CTAB Cardiovascular: RRR, Normal S1, Normal S2, without murmur Abdomen: non-tender, non-distended Neurological: no change Internal Medicine Assmt/Plan - Assessment Assessment: 1.HYPERLIPIDEMIA. 2.DJD. 3.NACHO. 4.DEMENTIA,\. 5.PSYCHOSIS - Plan Plan: CONTINUE ON CURRENT MEDICATION AND DIET. Nutritional Asmnt/Malnutr-PDOC - Dietary Evaluation Malnutrition Findings (Please click <Entered> for more info): Nutritional Asmnt/Malnutrition Start: 03/24/19 13: 14 Text: Status: Complete Freq: Protocol: Document 03/24/19 13:15 HOLLIE (Rec: 03/24/19 13:18 [email or web address] [id number]) Nutritional Asmnt/Malnutrition Patient General Information Nutritional Screening Low Risk Diagnosis Psychosis NOS Pertinent Medical Hx/Surgical Hx DJD, Hyperlipidemia, Dementia, GERD Subjective Information Pt is a 73-year-old male admitted on 03/19 d/t psychosis. Spoke with RN, Carroll, stated Pt is not eating much and at times refusing meals all together. Pt did drink 8 oz. juice, will provide Pt with Ensure Enlive to promote nutrition intake. RN stated Pt was noted to be lethargic yesterday, but seems fine today. He will monitor lethargy. Per Progress NOTE (), Pt in the hospital pretty lethargic. RN notes () state, Pt is very lethargic, weak, confused. Meal/Nutrition Record: 03/20: Pt ate 100% meals 03/21: Pt ate 50-75% meals 03/22: Pt ate 25-50% meals 03/23: PT refused all meals HT: 56 WT: 139 LB (63.18 kg) BMI: 22.55 (Normal) GI: Soft, Non-tender BM: 03/21 x1 I/O: 180/Not Noted Skin: Dryness Carter: 16 Diet Order: Regular Estimated Energy Needs: ( Geriatric, CBW) 8835-2762 kcals (25-30 kcals/ kg) 63-76g Pro (1.0-1.2 g/kg) 8723-9742 ml (25-30 ml/kg) Current Diet Order/ Nutrition Support Regular Pertinent Medications Maalox (PRN), Lipitor, Folate, MOM (PRN), Megace, Theragran, Vitamin B1 Pertinent Labs 03/23: Glucose 138, AST 45, Alb 4.1 Nutritional Hx/Data Height 1.68 m Height (Calculated Centimeters) 167.6 Current Weight (lbs) 63.049 kg Weight (Calculated Kilograms) 63.0 Weight (Calculated Grams) 76396.3 [place] Body Weight 142 LB (64.55 kg) % [place] Body Weight 98 Body Mass Index (BMI) 22.4 Weight Status Approriate GI Symptoms GI Symptoms None Last BM 03/21 x1 Skin Integrity/Comment: Skin: Dryness Carter: 16 Current %PO Poor (25-49%) Estimated Nutritional Goals BEE in Kcals: Using Current wt Calories/Kcals/Kg 25-30 Kcals Calculated 2774-3900 Protein: Using Current wt Protein g/k.0-1.2 Protein Calculated 62-76 Fluid: ml 0056-8656 ml (25-30 ml/kg) Nutritional Problem 1. Problem Problem Inadequate energy intake Etiology r/t possible poor appetite/ lethargy Signs/Symptoms: aeb noted Pt refusal to eat meals and PO intake 0-25-50% x3 days. Malnutrition Related to Morbid Obesity Malnutrition related to morbid obesity No Intervention/Recommendation Comments 1. Continue with Regular diet as ordered. 2. Add Ensure Enlive TID ( completed). Expected Outcomes/Goals Expected Outcomes/Goals 1. PO intake to meet 75% of nutritional needs. 2. Monitor PO intake, wt, nutrition related labs, and skin integrity. 3. F/U as moderate risk in 3-5 days, 03/27-03/29
[2019-04-03] MEDS: Atorvastatin Calcium 10 MG TAB PO SCH (20:54)
[2019-04-04] MEDS: Multivitamin Tab PO SCH (08:39)
--- NOTE | 2019-04-04 09:16 | Internal Medicine Prog Note ---
Internal Medicine Subjective - Subjective Service Date: 04/04/19 Patient seen and examined:: without staff (HE IS DOING WELL) Patient is:: awake, non-verbal, in bed, confused Per staff patient has:: no adverse event Internal Medicine Objective - Results Result Diagrams: 03/23/19 18:30 03/23/19 18:30 Recent Labs: Laboratory Last Values WBC 9.6 Th/cmm (4.8-10.8) 03/23/19 18:30 RBC 5.01 Mil/cmm (3.80-5.80) 03/23/19 18:30 Hgb 17.3 gm/dL (12-16) 03/23/19 18:30 Hct 51.3 % (41.0-60) 03/23/19 18:30 MCV 102.4 fl (80-99) H 03/23/19 18:30 MCH 34.5 pg (27.0-31.0) H 03/23/19 18:30 MCHC Differential 33.7 pg (28.0-36.0) 03/23/19 18:30 RDW 14.4 % (11.5-20.0) 03/23/19 18:30 Plt Count 396 Th/cmm (150-400) 03/23/19 18:30 MPV 7.4 fl 03/23/19 18:30 Neutrophils % 80.0 % (40.0-80.0) 03/23/19 18:30 Lymphocytes % 13.8 % (20.0-50.0) L 03/23/19 18:30 Monocytes % 2.0 % (2.0-10.0) 03/23/19 18:30 Eosinophils % 1.7 % (0.0-5.0) 03/23/19 18:30 Basophils % 2.5 % (0.0-2.0) H 03/23/19 18:30 Sodium 144 mEq/L (136-145) 03/23/19 18:30 Potassium 3.8 mEq/L (3.5-5.1) 03/23/19 18:30 Chloride 105 mEq/L (98-107) 03/23/19 18:30 Carbon Dioxide 25.5 mEq/L (21.0-31.0) 03/23/19 18:30 Anion Gap 17.3 (7.0-16.0) H 03/23/19 18:30 BUN 15 mg/dL (7-25) 03/23/19 18:30 Creatinine 0.7 mg/dL (0.7-1.3) 03/23/19 18:30 Est GFR ( Amer) TNP 03/23/19 18:30 Est GFR (Non-Af Amer) TNP 03/23/19 18:30 BUN/Creatinine Ratio 21.4 03/23/19 18:30 Glucose 138 mg/dL (70-105) H 03/23/19 18:30 Calcium 9.1 mg/dL (8.6-10.3) 03/23/19 18:30 Total Bilirubin 0.8 mg/dL (0.3-1.0) 03/23/19 18:30 AST 45 U/L (13-39) H 03/23/19 18:30 ALT 28 U/L (7-52) 03/23/19 18:30 Alkaline Phosphatase 76 U/L (34-104) 03/23/19 18:30 Total Protein 7.3 gm/dL (6.0-8.3) 03/23/19 18:30 Albumin 4.1 gm/dL (4.2-5.5) L 03/23/19 18:30 Globulin 3.2 gm/dL 03/23/19 18:30 Albumin/Globulin Ratio 1.3 (1.0-1.8) 03/23/19 18:30 Triglycerides 115 mg/dL (<150) 03/23/19 18:30 Cholesterol 139 mg/dL (<200) 03/23/19 18:30 LDL Cholesterol Direct 57 mg/dL (75-193) L 03/23/19 18:30 HDL Cholesterol 59 mg/dL (23-92) 03/23/19 18:30 - Physical Exam Vitals and I&O: Vital Signs Temp 98 F 04/04/19 07:02 Pulse 98 04/04/19 07:02 Resp 16 04/04/19 07:50 BP 99/56 04/04/19 07:02 Pulse Ox 97 04/04/19 07:02 Intake & Output 04/03/19 04/04/19 04/04/19 18:59 06:59 18:59 Intake Total 240 Output Total 1 Balance 239 Intake: Oral 240 Output: Urine/Stool Mix 1 Other: # Voids 1 Active Medications: Current Medications Acetaminophen (Tylenol) 650 mg PO Q4HR PRN PRN Reason: Mild Pain / Temp above 100 Stop: 05/18/19 22:54 Last Admin: 03/20/19 14:31 Dose: 650 mg Al Hydrox/Mg Hydrox/Simethicone (Maalox) 30 ml PO Q4HR PRN PRN Reason: GI DISTRESS Stop: 05/18/19 22:54 Atorvastatin Calcium (Lipitor) 20 mg PO HS JOSSELYN Stop: 05/19/19 20:59 Last Admin: 04/03/19 20:54 Dose: 20 mg Folic Acid (Folate) 1 mg PO DAILY JOSSELYN Stop: 05/19/19 08:59 Last Admin: 04/04/19 08:39 Dose: 1 mg Magnesium Hydroxide (Milk Of Magnesia) 30 ml PO HS PRN PRN Reason: Constipation Megestrol Acetate (Megace) 400 mg PO BID [facility]; Protocol Stop: 05/23/19 08:59 Last Admin: 04/04/19 08:38 Dose: 400 mg Multivitamins/Vitamin C (Theragran) 1 tab PO DAILY [facility] Stop: 05/19/19 08:59 Last Admin: 04/04/19 08:39 Dose: 1 tab Risperidone (Risperdal) 1 mg PO BID [facility]; Protocol Stop: 05/30/19 08:59 Last Admin: 04/04/19 08:39 Dose: 1 mg Thiamine HCl (Vitamin B1) 100 mg PO DAILY [facility] Stop: 05/19/19 08:59 Last Admin: 04/04/19 08:39 Dose: 100 mg General: demented HEENT: NC/AT, PERRLA, EOMI, anicteric sclerae, throat clear Neck: Supple, No JVD, No thyromegaly, +2 carotid pulse wo bruit, No LAD Lungs: CTAB Cardiovascular: RRR, Normal S1, Normal S2, without murmur Abdomen: non-tender, non-distended Neurological: no change Internal Medicine Assmt/Plan - Assessment Assessment: 1.HYPERLIPIDEMIA. 2.DJD. 3.NACHO. 4.DEMENTIA,\. 5.PSYCHOSIS - Plan Plan: CONTINUE ON CURRENT MEDICATION AND DIET. Nutritional Asmnt/Malnutr-PDOC - Dietary Evaluation Malnutrition Findings (Please click <Entered> for more info): Nutritional Asmnt/Malnutrition Start: 03/24/19 13: 14 Text: Status: Complete Freq: Protocol: Document 03/24/19 13:15 HOLLIE (Rec: 03/24/19 13:18 HOLLIE [id number]) Nutritional Asmnt/Malnutrition Patient General Information Nutritional Screening Low Risk Diagnosis Psychosis NOS Pertinent Medical Hx/Surgical Hx DJD, Hyperlipidemia, Dementia, GERD Subjective Information Pt is a 73-year-old male admitted on 03/19 d/t psychosis. Spoke with RN, Carroll, stated Pt is not eating much and at times refusing meals all together. Pt did drink 8 oz. juice, will provide Pt with Ensure Enlive to promote nutrition intake. RN stated Pt was noted to be lethargic yesterday, but seems fine today. He will monitor lethargy. Per Progress NOTE (), Pt in the hospital pretty lethargic. RN notes () state, Pt is very lethargic, weak, confused. Meal/Nutrition Record: 03/20: Pt ate 100% meals 03/21: Pt ate 50-75% meals 03/22: Pt ate 25-50% meals 03/23: PT refused all meals HT: 56 WT: 139 LB (63.18 kg) BMI: 22.55 (Normal) GI: Soft, Non-tender BM: 03/21 x1 I/O: 180/Not Noted Skin: Dryness Carter: 16 Diet Order: Regular Estimated Energy Needs: ( Geriatric, CBW) 7570-0572 kcals (25-30 kcals/ kg) 63-76g Pro (1.0-1.2 g/kg) 2331-5878 ml (25-30 ml/kg) Current Diet Order/ Nutrition Support Regular Pertinent Medications Maalox (PRN), Lipitor, Folate, MOM (PRN), Megace, Theragran, Vitamin B1 Pertinent Labs 03/23: Glucose 138, AST 45, Alb 4.1 Nutritional Hx/Data Height 1.68 m Height (Calculated Centimeters) 167.6 Current Weight (lbs) 63.049 kg Weight (Calculated Kilograms) 63.0 Weight (Calculated Grams) 51994.3 [place] Body Weight 142 LB (64.55 kg) % [place] Body Weight 98 Body Mass Index (BMI) 22.4 Weight Status Approriate GI Symptoms GI Symptoms None Last BM 03/21 x1 Skin Integrity/Comment: Skin: Dryness Carter: 16 Current %PO Poor (25-49%) Estimated Nutritional Goals BEE in Kcals: Using Current wt Calories/Kcals/Kg 25-30 Kcals Calculated 3735-2143 Protein: Using Current wt Protein g/k.0-1.2 Protein Calculated 62-76 Fluid: ml 1688-2937 ml (25-30 ml/kg) Nutritional Problem 1. Problem Problem Inadequate energy intake Etiology r/t possible poor appetite/ lethargy Signs/Symptoms: aeb noted Pt refusal to eat meals and PO intake 0-25-50% x3 days. Malnutrition Related to Morbid Obesity Malnutrition related to morbid obesity No Intervention/Recommendation Comments 1. Continue with Regular diet as ordered. 2. Add Ensure Enlive TID ( completed). Expected Outcomes/Goals Expected Outcomes/Goals 1. PO intake to meet 75% of nutritional needs. 2. Monitor PO intake, wt, nutrition related labs, and skin integrity. 3. F/U as moderate risk in 3-5 days, 03/27-03/29
--- NOTE | 2019-04-04 21:08 | Progress Notes ---
DATE: 04/03/2019 SUBJECTIVE: Chart reviewed and the patient interviewed. Also discussed the patient's condition with the staff and reviewed records and labs. The patient is supposed to be discharged today because the patient is doing better and less anxious and less irritable. Also, compliant with taking his medications and no behavioral issues. Accepting no side effects of all of the medications. JOB# [id number]
--- NOTE | 2019-04-05 01:09 | Progress Notes ---
DATE: 04/04/2019 DATE OF SERVICE: 04/04/2019 SUBJECTIVE: Chart reviewed and the patient interviewed. Also discussed the patient's condition with the staff and reviewed records and labs. The patient was supposed to be discharged yesterday but for some unknown reason, the patient is still in the hospital and he did not leave. The patient is calm and cooperative. He is still forgetful, but no major behavioral problems. The patient also has been compliant with taking his medications with no side effects of medications. ASSESSMENT: The patient is still anxious, but waiting for discharge plans and for placement issue. JOB# [id number]
== END 2019-04-04 17:10 | DRG 885 ==
LOC: GERO 21:10
PROVIDERS: ADMIT Psychiatry & Neurology Psychiatry; ATTEND Psychiatry & Neurology Psychiatry
DX: F20.9 Schizophrenia, unspecified (principal); E78.5 Hyperlipidemia, unspecified; M19.90 Unspecified osteoarthritis, unspecified site; K21.9 Gastro-esophageal reflux disease without esophagitis; F29 Unspecified psychosis not due to a substance or known physiological condition; F03.90 Unspecified dementia, unspecified severity, without behavioral disturbance, psychotic disturbance, mood disturbance, and anxiety; Z79.899 Other long term (current) drug therapy
CPT/HCPCS: 36415-UA; 80053-TC; 80061-TC; 83036-90; 85025-TC; 97530; G0410; X3904; Z7610